=== PATIENT | female | born 1955 | race Caucasian/White ===

== ENCOUNTER 2018-09-13 23:52 | Inpatient (IN) ==
[~2018-09-13 23:52] MED LIST: Sod Chloride 0.9% Inj 1,000 ML IV.CONT SCH
--- NOTE | 2018-09-14 00:06 | ED ---
HPI General Chief complaint: Neuro Symptoms/Deficit Stated complaint: Neuro Time Seen by Provider: 09/13/18 23:55 Source: patient Mode of arrival: ambulatory Limitations: no limitations History of Present Illness HPI narrative: 62yo F with PMH of HTN and TIA was brought down by L&D staff for evaluation of stroke symptoms. Pt came to work and staff noticed she had left facial droop and slurred speech and unsteady in her gait. Said her speech is not normally like this. Left leg is also weaker. Pt said her symptoms started 4:30pm but she did not want to come in. Also complains of some sob. Denies any fever, chest pain, n/v, abdominal pain. Related Data Home Medications Medication Instructions Recorded Confirmed levothyroxine 88 mcg PO DAILY 09/14/18 09/14/18 levothyroxine 100 mcg PO DAILY 09/14/18 09/14/18 lisinopril 20 mg PO BID 09/14/18 09/14/18 nifedipine [Procardia XL] 30 mg PO DAILY 09/18/18 09/18/18 sertraline 100 mg PO BID 09/18/18 09/18/18 Previous Rx's Medication Instructions Recorded gabapentin [Neurontin] 800 mg PO DAILY 10 Days #20 cap 09/18/18 morphine [MS Contin] 15 mg PO Q12H #30 tab 09/18/18 Allergies Allergy/AdvReac Type Severity Reaction Status Date / Time No Known Allergies Allergy Verified 09/13/18 23:54 Review of Systems ROS: all other systems reviewed are negative [facility] Social History Social History Substance History: No History of Abuse Second Hand Smoke Exposure: No Smoking Status: Never smoker How Often Do You Have a Drink Containing Alcohol: Monthly or less Exam Narrative Exam Narrative: GENERAL: 62yo F in mild distress. SKIN: Focused skin assessment warm/dry. HEAD: Atraumatic. Normocephalic. EYES: Pupils equal and round. No scleral icterus. No injection or drainage. ENT: No nasal bleeding or discharge. Mucous membranes pink and moist. NECK: Trachea midline. No JVD. CARDIOVASCULAR: Regular rate and rhythm. No murmur appreciated. RESPIRATORY: No accessory muscle use. Clear to auscultation. Breath sounds equal bilaterally. GASTROINTESTINAL: Abdomen soft, non-tender, nondistended. MUSCULOSKELETAL: No obvious deformities. No clubbing. No cyanosis. No edema. NEUROLOGICAL: Awake and alert. NIH scale 5. Left V1 decreased sensation. Left facial droop. Left leg weakness. PSYCHIATRIC: Appropriate mood and affect; insight and judgment normal. Course Initial Documented Vital Signs Pulse Oximetry 97 09/13/18 23:58 Last Documented Vital Signs Temperature 98.5 F 09/18/18 08:00 Pulse Rate 70 09/18/18 17:00 Respiratory Rate 20 09/18/18 15:23 Blood Pressure 139/85 09/18/18 15:23 Pulse Oximetry 100 09/18/18 15:23 Critical Care Time Critical Care Time: Yes Total Critical Care Time: 50 Attestation: Aggregate critical care time was 50 minutes. Time to perform other separately billable procedures was not included in the critical care time. My time did not include minutes spent treating any other patients simultaneously or on activities that did not directly contribute to the patient's treatment. The services I provided to this patient were to treat and/or prevent clinically significant deterioration that could result in: cardiovascular collapse or . I provided critical care services requiring my management, as noted below: Chart data review, documentation time, medication orders and management, vital sign assessments/reviewing monitor data, ordering and reviewing lab tests, ordering and interpreting/reviewing x-rays and diagnostic studies, care of the patient and discussion of the patient with the admitting physicians. Medical Decision Making MDM Narrative Medical decision making narrative: 62yo F here with slurred speech, left facial droop, left leg weakness that started around 4:30pm today. However, pt did not present to the ED until she came to work this evening at 23:55. Stroke alert called since it is within 24 hours but this is out of TPA window. Discussed with Dr. Thomas. Labs reviewed, no leukocytosis. H/H normal. Troponin negative. BUN/creatinine mildly elevated at 27/1.5. CT brain showed no acute abnormality. CTA head showed no large vessel occlusion. Pt became hypotensive after CT scan and was given IVF NS. Pt found to be somnolent and when asked, said she has chronic back pain and takes morphine and percocet daily. Took her medications prior to coming. Pt given narcan 0.4mg IV and became more arousable , O2 sat 95% on RA. ABG prior to narcan showed respiratory acidosis with pH of 7.28, pCO2 57.5. Pt observed but became more somnolent again so a second 0.4mg narcan ordered. Pt again became more awake. BP still 86/47 after 2 liters of IVF, so ordered a third liter. CXR negative. Lactic acid normal. TSH mildly elevated. CPK normal. Discussed with Dr. Shetty and accepted to his service. Medical Screen Exam Complete: Yes Emergency Medical Condition: Yes Differential Diagnosis Differential Diagnosis: CVA vs. drug use vs. pneumonia vs. electrolyte abnormality Lab Data Result diagrams: 09/17/18 06:02 09/17/18 06:02 Lab Results 09/14/18 09/14/18 09/14/18 Range/Units 00:03 00:03 00:03 WBC 9.1 (4.0-11.0) th/mm3 RBC 4.45 (4.00-5.30) mil/mm3 Hgb 11.9 (11.6-15.3) gm/dL POC Hgb (Calc) 12.6 (11.6-15.3) g/dL Hct 36.5 (35.0-46.0) % POC Hct 37.0 (35-46.0) % MCV 82.0 (80.0-100.0) fL MCH 26.8 L (27.0-34.0) pg MCHC 32.6 (32.0-36.0) % RDW 15.2 (11.6-17.2) % Plt Count 195 (150-450) th/mm3 MPV 8.5 (7.0-11.0) fL Neut % (Auto) 81.4 H (16.0-70.0) % Lymph % (Auto) 7.9 L (9.0-44.0) % Chaves % (Auto) 8.6 H (0.0-8.0) % Eos % (Auto) 1.8 (0.0-4.0) % Baso % (Auto) 0.3 (0.0-2.0) % Neut # (Auto) 7.4 (1.8-7.7) th/mm3 Lymph # (Auto) 0.7 L (1.0-4.8) th/mm3 Chaves # (Auto) 0.8 (0.0-0.9) th/mm3 Eos # (Auto) 0.2 (0.0-0.4) th/mm3 Baso # (Auto) 0.0 (0.0-0.2) th/mm3 WBC Differential . Differential Comment Auto diff final PT 10.4 (9.8-11.6) sec INR 1.0 Ratio APTT 29.2 (23.4-31.7) sec Fibrinogen 433 H (227-377) mg/dL Puncture Site Patient Temperature O2 Saturation (90-100) % ABG pH (7.380-7.420) ABG pCO2 (38-42) mmHg ABG pO2 (61-120) mmHg ABG HCO3 (22-26) mmol/L ABG O2 Content (12.0-20.0) Vol % ABG Base Excess (-2-2) mmol/L ABG Methemoglobin (0-2) % Tyson Test Hemoglobin (12.0-16.0) G/DL Carboxyhemoglobin (0-4) % O2 Delivery Device Liter Flow L/M Vent Setting Inspired O2 % Critical Value POC Sodium 140 (137-144) mmol/L Sodium (136-145) meq/L POC Potassium 5.0 (3.6-5.0) mmol/L Potassium (3.5-5.1) meq/L POC Chloride 103 (102-111) mmol/L Chloride (98-107) meq/L Carbon Dioxide (21.0-32.0) meq/L Anion Gap (5-15) meq/L POC BUN 27 H (5-21) mg/dL BUN (7-18) mg/dL Creatinine (0.50-1.00) mg/dL POC Creatinine 1.5 H (0.6-1.3) mg/dL Estimated GFR (>89) mL/min POC Glucose 96 (68-110) mg/dL Random Glucose (74-106) mg/dL Lactic Acid (0.4-2.0) mmol/L Calcium (8.5-10.1) mg/dL Calcium Adj for Albumin (8.5-10.1) mg/dL Phosphorus (2.5-4.9) mg/dL Magnesium (1.5-2.5) mg/dL Total Bilirubin (0.2-1.0) mg/dL AST (15-37) U/L ALT (10-53) U/L Alkaline Phosphatase (45-117) U/L Total Creatine Kinase 119 (26-192) U/L Troponin I Less than 0.02 L (0.02-0.05) ng/mL Total Protein (6.4-8.2) g/dL Albumin (3.4-5.0) g/dL TSH (0.358-3.740) uIU/mL Urine Color (Yellw/Straw) Urine Clarity (Clear) Urine pH (5.0-8.5) Ur Specific [place] (1.002-1.035) Urine Protein (Neg-Trace) mg/dL Urine Glucose (UA) (Negative) mg/dL Urine Ketones (Negative) mg/dL Urine Occult Blood (Negative) Urine Nitrate (Negative) Urine Bilirubin (Negative) Urine Urobilinogen (Less than 2) mg/dL Ur Leukocyte Esterase (Negative) Urine RBC (0-3) /hpf Urine WBC (0-5) /hpf Urine WBC Clumps (None) Urine Bacteria (None) /hpf Hyaline Casts (0-3) /lpf Urine Mucus (Occasional) /lpf Micro UA Comment Ur Microscopic Review Urine Culture Comments Nasal Screen MRSA (PCR) (Negative) Urine Opiates Screen (Neg) Ur Barbiturates Screen (Neg) Ur Amphetamines Screen (Neg) U Benzodiazepines Scrn (Neg) Urine Cocaine Screen (Neg) U Cannabinoids Screen (Neg) Serum Alcohol (0-5) mg/dL Blood Type Blood Type Recheck Antibody Screen 09/14/18 09/14/18 09/14/18 Range/Units 00:03 01:15 02:32 WBC (4.0-11.0) th/mm3 RBC (4.00-5.30) mil/mm3 Hgb (11.6-15.3) gm/dL POC Hgb (Calc) (11.6-15.3) g/dL Hct (35.0-46.0) % POC Hct (35-46.0) % MCV (80.0-100.0) fL MCH (27.0-34.0) pg MCHC (32.0-36.0) % RDW (11.6-17.2) % Plt Count (150-450) th/mm3 MPV (7.0-11.0) fL Neut % (Auto) (16.0-70.0) % Lymph % (Auto) (9.0-44.0) % Chaves % (Auto) (0.0-8.0) % Eos % (Auto) (0.0-4.0) % Baso % (Auto) (0.0-2.0) % Neut # (Auto) (1.8-7.7) th/mm3 Lymph # (Auto) (1.0-4.8) th/mm3 Chaves # (Auto) (0.0-0.9) th/mm3 Eos # (Auto) (0.0-0.4) th/mm3 Baso # (Auto) (0.0-0.2) th/mm3 WBC Differential Differential Comment PT (9.8-11.6) sec INR Ratio APTT (23.4-31.7) sec Fibrinogen (227-377) mg/dL Puncture Site Left brachial Patient Temperature 98.6 O2 Saturation 89 L* (90-100) % ABG pH 7.29 L* (7.380-7.420) ABG pCO2 58 H* (38-42) mmHg ABG pO2 62 (61-120) mmHg ABG HCO3 27 H (22-26) mmol/L ABG O2 Content 13.4 (12.0-20.0) Vol % ABG Base Excess 0.8 (-2-2) mmol/L ABG Methemoglobin 0.4 (0-2) % Tyson Test Hemoglobin 10.6 L (12.0-16.0) G/DL Carboxyhemoglobin 1.1 (0-4) % O2 Delivery Device Room air Liter Flow L/M Vent Setting Inspired O2 21 % Critical Value Yes POC Sodium (137-144) mmol/L Sodium (136-145) meq/L POC Potassium (3.6-5.0) mmol/L Potassium (3.5-5.1) meq/L POC Chloride (102-111) mmol/L Chloride (98-107) meq/L Carbon Dioxide (21.0-32.0) meq/L Anion Gap (5-15) meq/L POC BUN (5-21) mg/dL BUN (7-18) mg/dL Creatinine (0.50-1.00) mg/dL POC Creatinine (0.6-1.3) mg/dL Estimated GFR (>89) mL/min POC Glucose (68-110) mg/dL Random Glucose (74-106) mg/dL Lactic Acid (0.4-2.0) mmol/L Calcium (8.5-10.1) mg/dL Calcium Adj for Albumin (8.5-10.1) mg/dL Phosphorus (2.5-4.9) mg/dL Magnesium (1.5-2.5) mg/dL Total Bilirubin (0.2-1.0) mg/dL AST (15-37) U/L ALT (10-53) U/L Alkaline Phosphatase (45-117) U/L Total Creatine Kinase (26-192) U/L Troponin I (0.02-0.05) ng/mL Total Protein (6.4-8.2) g/dL Albumin (3.4-5.0) g/dL TSH 5.050 H (0.358-3.740) uIU/mL Urine Color (Yellw/Straw) Urine Clarity (Clear) Urine pH (5.0-8.5) Ur Specific [place] (1.002-1.035) Urine Protein (Neg-Trace) mg/dL Urine Glucose (UA) (Negative) mg/dL Urine Ketones (Negative) mg/dL Urine Occult Blood (Negative) Urine Nitrate (Negative) Urine Bilirubin (Negative) Urine Urobilinogen (Less than 2) mg/dL Ur Leukocyte Esterase (Negative) Urine RBC (0-3) /hpf Urine WBC (0-5) /hpf Urine WBC Clumps (None) Urine Bacteria (None) /hpf Hyaline Casts (0-3) /lpf Urine Mucus (Occasional) /lpf Micro UA Comment Ur Microscopic Review Urine Culture Comments Nasal Screen MRSA (PCR) (Negative) Urine Opiates Screen (Neg) Ur Barbiturates Screen (Neg) Ur Amphetamines Screen (Neg) U Benzodiazepines Scrn (Neg) Urine Cocaine Screen (Neg) U Cannabinoids Screen (Neg) Serum Alcohol Less than 3 (0-5) mg/dL Blood Type A Positive Blood Type Recheck Required Antibody Screen Negative 09/14/18 09/14/18 09/14/18 Range/Units 02:32 03:45 05:41 WBC (4.0-11.0) th/mm3 RBC (4.00-5.30) mil/mm3 Hgb (11.6-15.3) gm/dL POC Hgb (Calc) (11.6-15.3) g/dL Hct (35.0-46.0) % POC Hct (35-46.0) % MCV (80.0-100.0) fL MCH (27.0-34.0) pg MCHC (32.0-36.0) % RDW (11.6-17.2) % Plt Count (150-450) th/mm3 MPV (7.0-11.0) fL Neut % (Auto) (16.0-70.0) % Lymph % (Auto) (9.0-44.0) % Chaves % (Auto) (0.0-8.0) % Eos % (Auto) (0.0-4.0) % Baso % (Auto) (0.0-2.0) % Neut # (Auto) (1.8-7.7) th/mm3 Lymph # (Auto) (1.0-4.8) th/mm3 Chaves # (Auto) (0.0-0.9) th/mm3 Eos # (Auto) (0.0-0.4) th/mm3 Baso # (Auto) (0.0-0.2) th/mm3 WBC Differential Differential Comment PT (9.8-11.6) sec INR Ratio APTT (23.4-31.7) sec Fibrinogen (227-377) mg/dL Puncture Site Patient Temperature O2 Saturation (90-100) % ABG pH (7.380-7.420) ABG pCO2 (38-42) mmHg ABG pO2 (61-120) mmHg ABG HCO3 (22-26) mmol/L ABG O2 Content (12.0-20.0) Vol % ABG Base Excess (-2-2) mmol/L ABG Methemoglobin (0-2) % Tyson Test Hemoglobin (12.0-16.0) G/DL Carboxyhemoglobin (0-4) % O2 Delivery Device Liter Flow L/M Vent Setting Inspired O2 % Critical Value POC Sodium (137-144) mmol/L Sodium (136-145) meq/L POC Potassium (3.6-5.0) mmol/L Potassium (3.5-5.1) meq/L POC Chloride (102-111) mmol/L Chloride (98-107) meq/L Carbon Dioxide (21.0-32.0) meq/L Anion Gap (5-15) meq/L POC BUN (5-21) mg/dL BUN (7-18) mg/dL Creatinine (0.50-1.00) mg/dL POC Creatinine (0.6-1.3) mg/dL Estimated GFR (>89) mL/min POC Glucose (68-110) mg/dL Random Glucose (74-106) mg/dL Lactic Acid 0.9 (0.4-2.0) mmol/L Calcium (8.5-10.1) mg/dL Calcium Adj for Albumin (8.5-10.1) mg/dL Phosphorus (2.5-4.9) mg/dL Magnesium (1.5-2.5) mg/dL Total Bilirubin (0.2-1.0) mg/dL AST (15-37) U/L ALT (10-53) U/L Alkaline Phosphatase (45-117) U/L Total Creatine Kinase (26-192) U/L Troponin I (0.02-0.05) ng/mL Total Protein (6.4-8.2) g/dL Albumin (3.4-5.0) g/dL TSH (0.358-3.740) uIU/mL Urine Color (Yellw/Straw) Urine Clarity (Clear) Urine pH (5.0-8.5) Ur Specific [place] (1.002-1.035) Urine Protein (Neg-Trace) mg/dL Urine Glucose (UA) (Negative) mg/dL Urine Ketones (Negative) mg/dL Urine Occult Blood (Negative) Urine Nitrate (Negative) Urine Bilirubin (Negative) Urine Urobilinogen (Less than 2) mg/dL Ur Leukocyte Esterase (Negative) Urine RBC (0-3) /hpf Urine WBC (0-5) /hpf Urine WBC Clumps (None) Urine Bacteria (None) /hpf Hyaline Casts (0-3) /lpf Urine Mucus (Occasional) /lpf Micro UA Comment Ur Microscopic Review Urine Culture Comments Nasal Screen MRSA (PCR) Not detected (Negative) Urine Opiates Screen Pos H (Neg) Ur Barbiturates Screen Neg (Neg) Ur Amphetamines Screen Neg (Neg) U Benzodiazepines Scrn Neg (Neg) Urine Cocaine Screen Neg (Neg) U Cannabinoids Screen Neg (Neg) Serum Alcohol (0-5) mg/dL Blood Type Blood Type Recheck Antibody Screen 09/14/18 09/14/18 09/14/18 Range/Units 05:41 06:33 07:55 WBC 5.8 (4.0-11.0) th/mm3 RBC 3.44 L (4.00-5.30) mil/mm3 Hgb 9.1 L D (11.6-15.3) gm/dL POC Hgb (Calc) (11.6-15.3) g/dL Hct 29.0 L (35.0-46.0) % POC Hct (35-46.0) % MCV 84.3 (80.0-100.0) fL MCH 26.6 L (27.0-34.0) pg MCHC 31.5 L (32.0-36.0) % RDW 15.6 (11.6-17.2) % Plt Count 139 L (150-450) th/mm3 MPV 8.7 (7.0-11.0) fL Neut % (Auto) 79.4 H (16.0-70.0) % Lymph % (Auto) 11.8 (9.0-44.0) % Chaves % (Auto) 6.8 (0.0-8.0) % Eos % (Auto) 1.7 (0.0-4.0) % Baso % (Auto) 0.3 (0.0-2.0) % Neut # (Auto) 4.6 (1.8-7.7) th/mm3 Lymph # (Auto) 0.7 L (1.0-4.8) th/mm3 Chaves # (Auto) 0.4 (0.0-0.9) th/mm3 Eos # (Auto) 0.1 (0.0-0.4) th/mm3 Baso # (Auto) 0.0 (0.0-0.2) th/mm3 WBC Differential . Differential Comment Auto diff final PT (9.8-11.6) sec INR Ratio APTT (23.4-31.7) sec Fibrinogen (227-377) mg/dL Puncture Site Patient Temperature O2 Saturation (90-100) % ABG pH (7.380-7.420) ABG pCO2 (38-42) mmHg ABG pO2 (61-120) mmHg ABG HCO3 (22-26) mmol/L ABG O2 Content (12.0-20.0) Vol % ABG Base Excess (-2-2) mmol/L ABG Methemoglobin (0-2) % Tyson Test Hemoglobin (12.0-16.0) G/DL Carboxyhemoglobin (0-4) % O2 Delivery Device Liter Flow L/M Vent Setting Inspired O2 % Critical Value POC Sodium (137-144) mmol/L Sodium (136-145) meq/L POC Potassium (3.6-5.0) mmol/L Potassium (3.5-5.1) meq/L POC Chloride (102-111) mmol/L Chloride (98-107) meq/L Carbon Dioxide (21.0-32.0) meq/L Anion Gap (5-15) meq/L POC BUN (5-21) mg/dL BUN (7-18) mg/dL Creatinine (0.50-1.00) mg/dL POC Creatinine (0.6-1.3) mg/dL Estimated GFR (>89) mL/min POC Glucose (68-110) mg/dL Random Glucose (74-106) mg/dL Lactic Acid (0.4-2.0) mmol/L Calcium (8.5-10.1) mg/dL Calcium Adj for Albumin (8.5-10.1) mg/dL Phosphorus (2.5-4.9) mg/dL Magnesium (1.5-2.5) mg/dL Total Bilirubin (0.2-1.0) mg/dL AST (15-37) U/L ALT (10-53) U/L Alkaline Phosphatase (45-117) U/L Total Creatine Kinase (26-192) U/L Troponin I Less than 0.02 L (0.02-0.05) ng/mL Total Protein (6.4-8.2) g/dL Albumin (3.4-5.0) g/dL TSH (0.358-3.740) uIU/mL Urine Color Yellow (Yellw/Straw) Urine Clarity Hazy H (Clear) Urine pH 5.0 (5.0-8.5) Ur Specific [place] 1.030 (1.002-1.035) Urine Protein 30 H (Neg-Trace) mg/dL Urine Glucose (UA) Negative (Negative) mg/dL Urine Ketones Negative (Negative) mg/dL Urine Occult Blood Small H (Negative) Urine Nitrate Positive H (Negative) Urine Bilirubin Negative (Negative) Urine Urobilinogen Less than 2 (Less than 2) mg/dL Ur Leukocyte Esterase Moderate H (Negative) Urine RBC 10 H (0-3) /hpf Urine WBC 75 H (0-5) /hpf Urine WBC Clumps Few H (None) Urine Bacteria Many H (None) /hpf Hyaline Casts 3 (0-3) /lpf Urine Mucus Few H (Occasional) /lpf Micro UA Comment Cath-culture ind Ur Microscopic Review Not Reportable Urine Culture Comments Cath-cult indicated Nasal Screen MRSA (PCR) (Negative) Urine Opiates Screen (Neg) Ur Barbiturates Screen (Neg) Ur Amphetamines Screen (Neg) U Benzodiazepines Scrn (Neg) Urine Cocaine Screen (Neg) U Cannabinoids Screen (Neg) Serum Alcohol (0-5) mg/dL Blood Type Blood Type Recheck Antibody Screen 09/14/18 09/14/18 09/14/18 Range/Units 07:55 07:55 09:20 WBC (4.0-11.0) th/mm3 RBC (4.00-5.30) mil/mm3 Hgb (11.6-15.3) gm/dL POC Hgb (Calc) (11.6-15.3) g/dL Hct (35.0-46.0) % POC Hct (35-46.0) % MCV (80.0-100.0) fL MCH (27.0-34.0) pg MCHC (32.0-36.0) % RDW (11.6-17.2) % Plt Count (150-450) th/mm3 MPV (7.0-11.0) fL Neut % (Auto) (16.0-70.0) % Lymph % (Auto) (9.0-44.0) % Chaves % (Auto) (0.0-8.0) % Eos % (Auto) (0.0-4.0) % Baso % (Auto) (0.0-2.0) % Neut # (Auto) (1.8-7.7) th/mm3 Lymph # (Auto) (1.0-4.8) th/mm3 Chaves # (Auto) (0.0-0.9) th/mm3 Eos # (Auto) (0.0-0.4) th/mm3 Baso # (Auto) (0.0-0.2) th/mm3 WBC Differential Differential Comment PT (9.8-11.6) sec INR Ratio APTT (23.4-31.7) sec Fibrinogen (227-377) mg/dL Puncture Site Left radial Patient Temperature 98.6 O2 Saturation 94 (90-100) % ABG pH 7.24 L* (7.380-7.420) ABG pCO2 56 H* (38-42) mmHg ABG pO2 90 (61-120) mmHg ABG HCO3 23 (22-26) mmol/L ABG O2 Content 12.4 (12.0-20.0) Vol % ABG Base Excess -3.2 L (-2-2) mmol/L ABG Methemoglobin 1.6 (0-2) % Tyson Test Present Hemoglobin 9.3 L (12.0-16.0) G/DL Carboxyhemoglobin 0.9 (0-4) % O2 Delivery Device Nasal cannula Liter Flow 2.00 L/M Vent Setting Inspired O2 % Critical Value Yes POC Sodium (137-144) mmol/L Sodium 143 (136-145) meq/L POC Potassium (3.6-5.0) mmol/L Potassium 4.2 (3.5-5.1) meq/L POC Chloride (102-111) mmol/L Chloride 113 H (98-107) meq/L Carbon Dioxide 28.2 (21.0-32.0) meq/L Anion Gap 2 L (5-15) meq/L POC BUN (5-21) mg/dL BUN 18 (7-18) mg/dL Creatinine 0.84 (0.50-1.00) mg/dL POC Creatinine (0.6-1.3) mg/dL Estimated GFR 68 L (>89) mL/min POC Glucose (68-110) mg/dL Random Glucose 88 (74-106) mg/dL Lactic Acid 0.4 (0.4-2.0) mmol/L Calcium 7.3 L* (8.5-10.1) mg/dL Calcium Adj for Albumin 7.9 L (8.5-10.1) mg/dL Phosphorus (2.5-4.9) mg/dL Magnesium (1.5-2.5) mg/dL Total Bilirubin 0.3 (0.2-1.0) mg/dL AST 11 L (15-37) U/L ALT 14 (10-53) U/L Alkaline Phosphatase 88 (45-117) U/L Total Creatine Kinase (26-192) U/L Troponin I (0.02-0.05) ng/mL Total Protein 5.9 L (6.4-8.2) g/dL Albumin 3.2 L (3.4-5.0) g/dL TSH (0.358-3.740) uIU/mL Urine Color (Yellw/Straw) Urine Clarity (Clear) Urine pH (5.0-8.5) Ur Specific [place] (1.002-1.035) Urine Protein (Neg-Trace) mg/dL Urine Glucose (UA) (Negative) mg/dL Urine Ketones (Negative) mg/dL Urine Occult Blood (Negative) Urine Nitrate (Negative) Urine Bilirubin (Negative) Urine Urobilinogen (Less than 2) mg/dL Ur Leukocyte Esterase (Negative) Urine RBC (0-3) /hpf Urine WBC (0-5) /hpf Urine WBC Clumps (None) Urine Bacteria (None) /hpf Hyaline Casts (0-3) /lpf Urine Mucus (Occasional) /lpf Micro UA Comment Ur Microscopic Review Urine Culture Comments Nasal Screen MRSA (PCR) (Negative) Urine Opiates Screen (Neg) Ur Barbiturates Screen (Neg) Ur Amphetamines Screen (Neg) U Benzodiazepines Scrn (Neg) Urine Cocaine Screen (Neg) U Cannabinoids Screen (Neg) Serum Alcohol (0-5) mg/dL Blood Type Blood Type Recheck Antibody Screen 09/14/18 09/14/18 09/14/18 Range/Units 13:37 15:25 22:18 WBC (4.0-11.0) th/mm3 RBC (4.00-5.30) mil/mm3 Hgb (11.6-15.3) gm/dL POC Hgb (Calc) (11.6-15.3) g/dL Hct (35.0-46.0) % POC Hct (35-46.0) % MCV (80.0-100.0) fL MCH (27.0-34.0) pg MCHC (32.0-36.0) % RDW (11.6-17.2) % Plt Count (150-450) th/mm3 MPV (7.0-11.0) fL Neut % (Auto) (16.0-70.0) % Lymph % (Auto) (9.0-44.0) % Chaves % (Auto) (0.0-8.0) % Eos % (Auto) (0.0-4.0) % Baso % (Auto) (0.0-2.0) % Neut # (Auto) (1.8-7.7) th/mm3 Lymph # (Auto) (1.0-4.8) th/mm3 Chaves # (Auto) (0.0-0.9) th/mm3 Eos # (Auto) (0.0-0.4) th/mm3 Baso # (Auto) (0.0-0.2) th/mm3 WBC Differential Differential Comment PT (9.8-11.6) sec INR Ratio APTT (23.4-31.7) sec Fibrinogen (227-377) mg/dL Puncture Site Right radial Right radial Patient Temperature 98.6 98.6 O2 Saturation 96 95 (90-100) % ABG pH 7.27 L* 7.29 L* (7.380-7.420) ABG pCO2 50 H 50 H (38-42) mmHg ABG pO2 100 96 (61-120) mmHg ABG HCO3 22 23 (22-26) mmol/L ABG O2 Content 12.3 15.4 (12.0-20.0) Vol % ABG Base Excess -3.8 L -2.5 L (-2-2) mmol/L ABG Methemoglobin 0.6 1.5 (0-2) % Tyson Test Present Present Hemoglobin 9.0 L 11.4 L (12.0-16.0) G/DL Carboxyhemoglobin 1.3 1.1 (0-4) % O2 Delivery Device Nasal cannula Bipap Liter Flow 2.00 L/M Vent Setting [id number] Inspired O2 25 % Critical Value Yes Yes POC Sodium (137-144) mmol/L Sodium (136-145) meq/L POC Potassium (3.6-5.0) mmol/L Potassium (3.5-5.1) meq/L POC Chloride (102-111) mmol/L Chloride (98-107) meq/L Carbon Dioxide (21.0-32.0) meq/L Anion Gap (5-15) meq/L POC BUN (5-21) mg/dL BUN (7-18) mg/dL Creatinine (0.50-1.00) mg/dL POC Creatinine (0.6-1.3) mg/dL Estimated GFR (>89) mL/min POC Glucose (68-110) mg/dL Random Glucose (74-106) mg/dL Lactic Acid (0.4-2.0) mmol/L Calcium (8.5-10.1) mg/dL Calcium Adj for Albumin (8.5-10.1) mg/dL Phosphorus (2.5-4.9) mg/dL Magnesium (1.5-2.5) mg/dL Total Bilirubin (0.2-1.0) mg/dL AST (15-37) U/L ALT (10-53) U/L Alkaline Phosphatase (45-117) U/L Total Creatine Kinase (26-192) U/L Troponin I Less than 0.02 L (0.02-0.05) ng/mL Total Protein (6.4-8.2) g/dL Albumin (3.4-5.0) g/dL TSH (0.358-3.740) uIU/mL Urine Color (Yellw/Straw) Urine Clarity (Clear) Urine pH (5.0-8.5) Ur Specific [place] (1.002-1.035) Urine Protein (Neg-Trace) mg/dL Urine Glucose (UA) (Negative) mg/dL Urine Ketones (Negative) mg/dL Urine Occult Blood (Negative) Urine Nitrate (Negative) Urine Bilirubin (Negative) Urine Urobilinogen (Less than 2) mg/dL Ur Leukocyte Esterase (Negative) Urine RBC (0-3) /hpf Urine WBC (0-5) /hpf Urine WBC Clumps (None) Urine Bacteria (None) /hpf Hyaline Casts (0-3) /lpf Urine Mucus (Occasional) /lpf Micro UA Comment Ur Microscopic Review Urine Culture Comments Nasal Screen MRSA (PCR) (Negative) Urine Opiates Screen (Neg) Ur Barbiturates Screen (Neg) Ur Amphetamines Screen (Neg) U Benzodiazepines Scrn (Neg) Urine Cocaine Screen (Neg) U Cannabinoids Screen (Neg) Serum Alcohol (0-5) mg/dL Blood Type Blood Type Recheck Antibody Screen 09/15/18 09/15/18 09/15/18 Range/Units 03:30 03:30 03:30 WBC 3.3 L (4.0-11.0) th/mm3 RBC 3.42 L (4.00-5.30) mil/mm3 Hgb 9.3 L (11.6-15.3) gm/dL POC Hgb (Calc) (11.6-15.3) g/dL Hct 28.4 L (35.0-46.0) % POC Hct (35-46.0) % MCV 83.3 (80.0-100.0) fL MCH 27.2 (27.0-34.0) pg MCHC 32.7 (32.0-36.0) % RDW 15.5 (11.6-17.2) % Plt Count 109 L (150-450) th/mm3 MPV 9.0 (7.0-11.0) fL Neut % (Auto) 71.7 H (16.0-70.0) % Lymph % (Auto) 15.2 (9.0-44.0) % Chaves % (Auto) 8.5 H (0.0-8.0) % Eos % (Auto) 4.1 H (0.0-4.0) % Baso % (Auto) 0.5 (0.0-2.0) % Neut # (Auto) 2.4 (1.8-7.7) th/mm3 Lymph # (Auto) 0.5 L (1.0-4.8) th/mm3 Chaves # (Auto) 0.3 (0.0-0.9) th/mm3 Eos # (Auto) 0.1 (0.0-0.4) th/mm3 Baso # (Auto) 0.0 (0.0-0.2) th/mm3 WBC Differential . Differential Comment Auto diff final PT 10.8 (9.8-11.6) sec INR 1.1 Ratio APTT 30.9 (23.4-31.7) sec Fibrinogen (227-377) mg/dL Puncture Site Patient Temperature O2 Saturation (90-100) % ABG pH (7.380-7.420) ABG pCO2 (38-42) mmHg ABG pO2 (61-120) mmHg ABG HCO3 (22-26) mmol/L ABG O2 Content (12.0-20.0) Vol % ABG Base Excess (-2-2) mmol/L ABG Methemoglobin (0-2) % Tyson Test Hemoglobin (12.0-16.0) G/DL Carboxyhemoglobin (0-4) % O2 Delivery Device Liter Flow L/M Vent Setting Inspired O2 % Critical Value POC Sodium (137-144) mmol/L Sodium 143 (136-145) meq/L POC Potassium (3.6-5.0) mmol/L Potassium 4.2 (3.5-5.1) meq/L POC Chloride (102-111) mmol/L Chloride 113 H (98-107) meq/L Carbon Dioxide 24.5 (21.0-32.0) meq/L Anion Gap 6 (5-15) meq/L POC BUN (5-21) mg/dL BUN 13 (7-18) mg/dL Creatinine 0.56 (0.50-1.00) mg/dL POC Creatinine (0.6-1.3) mg/dL Estimated GFR Greater than 89 (>89) mL/min POC Glucose (68-110) mg/dL Random Glucose 73 L (74-106) mg/dL Lactic Acid (0.4-2.0) mmol/L Calcium 8.0 L (8.5-10.1) mg/dL Calcium Adj for Albumin (8.5-10.1) mg/dL Phosphorus 3.2 (2.5-4.9) mg/dL Magnesium 2.0 (1.5-2.5) mg/dL Total Bilirubin 0.4 (0.2-1.0) mg/dL AST 13 L (15-37) U/L ALT 13 (10-53) U/L Alkaline Phosphatase 85 (45-117) U/L Total Creatine Kinase (26-192) U/L Troponin I (0.02-0.05) ng/mL Total Protein 6.0 L (6.4-8.2) g/dL Albumin 3.0 L (3.4-5.0) g/dL TSH (0.358-3.740) uIU/mL Urine Color (Yellw/Straw) Urine Clarity (Clear) Urine pH (5.0-8.5) Ur Specific [place] (1.002-1.035) Urine Protein (Neg-Trace) mg/dL Urine Glucose (UA) (Negative) mg/dL Urine Ketones (Negative) mg/dL Urine Occult Blood (Negative) Urine Nitrate (Negative) Urine Bilirubin (Negative) Urine Urobilinogen (Less than 2) mg/dL Ur Leukocyte Esterase (Negative) Urine RBC (0-3) /hpf Urine WBC (0-5) /hpf Urine WBC Clumps (None) Urine Bacteria (None) /hpf Hyaline Casts (0-3) /lpf Urine Mucus (Occasional) /lpf Micro UA Comment Ur Microscopic Review Urine Culture Comments Nasal Screen MRSA (PCR) (Negative) Urine Opiates Screen (Neg) Ur Barbiturates Screen (Neg) Ur Amphetamines Screen (Neg) U Benzodiazepines Scrn (Neg) Urine Cocaine Screen (Neg) U Cannabinoids Screen (Neg) Serum Alcohol (0-5) mg/dL Blood Type Blood Type Recheck Antibody Screen 09/16/18 09/16/18 09/17/18 Range/Units 07:34 07:34 06:02 WBC 3.4 L 3.1 L (4.0-11.0) th/mm3 RBC 3.62 L 3.82 L (4.00-5.30) mil/mm3 Hgb 9.7 L 10.2 L (11.6-15.3) gm/dL POC Hgb (Calc) (11.6-15.3) g/dL Hct 29.7 L 31.0 L (35.0-46.0) % POC Hct (35-46.0) % MCV 82.0 81.3 (80.0-100.0) fL MCH 26.9 L 26.8 L (27.0-34.0) pg MCHC 32.8 33.0 (32.0-36.0) % RDW 15.0 14.7 (11.6-17.2) % Plt Count 135 L 143 L (150-450) th/mm3 MPV 9.0 8.5 (7.0-11.0) fL Neut % (Auto) 75.6 H 71.9 H (16.0-70.0) % Lymph % (Auto) 12.8 13.2 (9.0-44.0) % Chaves % (Auto) 8.5 H 11.3 H (0.0-8.0) % Eos % (Auto) 2.5 3.1 (0.0-4.0) % Baso % (Auto) 0.6 0.5 (0.0-2.0) % Neut # (Auto) 2.5 2.2 (1.8-7.7) th/mm3 Lymph # (Auto) 0.4 L 0.4 L (1.0-4.8) th/mm3 Chaves # (Auto) 0.3 0.3 (0.0-0.9) th/mm3 Eos # (Auto) 0.1 0.1 (0.0-0.4) th/mm3 Baso # (Auto) 0.0 0.0 (0.0-0.2) th/mm3 WBC Differential . . Differential Comment Auto diff final Auto diff final PT (9.8-11.6) sec INR Ratio APTT (23.4-31.7) sec Fibrinogen (227-377) mg/dL Puncture Site Patient Temperature O2 Saturation (90-100) % ABG pH (7.380-7.420) ABG pCO2 (38-42) mmHg ABG pO2 (61-120) mmHg ABG HCO3 (22-26) mmol/L ABG O2 Content (12.0-20.0) Vol % ABG Base Excess (-2-2) mmol/L ABG Methemoglobin (0-2) % Tyson Test Hemoglobin (12.0-16.0) G/DL Carboxyhemoglobin (0-4) % O2 Delivery Device Liter Flow L/M Vent Setting Inspired O2 % Critical Value POC Sodium (137-144) mmol/L Sodium 141 (136-145) meq/L POC Potassium (3.6-5.0) mmol/L Potassium 3.9 (3.5-5.1) meq/L POC Chloride (102-111) mmol/L Chloride 109 H (98-107) meq/L Carbon Dioxide 21.1 (21.0-32.0) meq/L Anion Gap 11 (5-15) meq/L POC BUN (5-21) mg/dL BUN 10 (7-18) mg/dL Creatinine 0.49 L (0.50-1.00) mg/dL POC Creatinine (0.6-1.3) mg/dL Estimated GFR Greater than 89 (>89) mL/min POC Glucose (68-110) mg/dL Random Glucose 71 L (74-106) mg/dL Lactic Acid (0.4-2.0) mmol/L Calcium 8.4 L (8.5-10.1) mg/dL Calcium Adj for Albumin (8.5-10.1) mg/dL Phosphorus (2.5-4.9) mg/dL Magnesium (1.5-2.5) mg/dL Total Bilirubin (0.2-1.0) mg/dL AST (15-37) U/L ALT (10-53) U/L Alkaline Phosphatase (45-117) U/L Total Creatine Kinase (26-192) U/L Troponin I (0.02-0.05) ng/mL Total Protein (6.4-8.2) g/dL Albumin (3.4-5.0) g/dL TSH (0.358-3.740) uIU/mL Urine Color (Yellw/Straw) Urine Clarity (Clear) Urine pH (5.0-8.5) Ur Specific [place] (1.002-1.035) Urine Protein (Neg-Trace) mg/dL Urine Glucose (UA) (Negative) mg/dL Urine Ketones (Negative) mg/dL Urine Occult Blood (Negative) Urine Nitrate (Negative) Urine Bilirubin (Negative) Urine Urobilinogen (Less than 2) mg/dL Ur Leukocyte Esterase (Negative) Urine RBC (0-3) /hpf Urine WBC (0-5) /hpf Urine WBC Clumps (None) Urine Bacteria (None) /hpf Hyaline Casts (0-3) /lpf Urine Mucus (Occasional) /lpf Micro UA Comment Ur Microscopic Review Urine Culture Comments Nasal Screen MRSA (PCR) (Negative) Urine Opiates Screen (Neg) Ur Barbiturates Screen (Neg) Ur Amphetamines Screen (Neg) U Benzodiazepines Scrn (Neg) Urine Cocaine Screen (Neg) U Cannabinoids Screen (Neg) Serum Alcohol (0-5) mg/dL Blood Type Blood Type Recheck Antibody Screen 01/14/19 Range/Units 06:02 WBC (4.0-11.0) th/mm3 RBC (4.00-5.30) mil/mm3 Hgb (11.6-15.3) gm/dL POC Hgb (Calc) (11.6-15.3) g/dL Hct (35.0-46.0) % POC Hct (35-46.0) % MCV (80.0-100.0) fL MCH (27.0-34.0) pg MCHC (32.0-36.0) % RDW (11.6-17.2) % Plt Count (150-450) th/mm3 MPV (7.0-11.0) fL Neut % (Auto) (16.0-70.0) % Lymph % (Auto) (9.0-44.0) % Chaves % (Auto) (0.0-8.0) % Eos % (Auto) (0.0-4.0) % Baso % (Auto) (0.0-2.0) % Neut # (Auto) (1.8-7.7) th/mm3 Lymph # (Auto) (1.0-4.8) th/mm3 Chaves # (Auto) (0.0-0.9) th/mm3 Eos # (Auto) (0.0-0.4) th/mm3 Baso # (Auto) (0.0-0.2) th/mm3 WBC Differential Differential Comment PT (9.8-11.6) sec INR Ratio APTT (23.4-31.7) sec Fibrinogen (227-377) mg/dL Puncture Site Patient Temperature O2 Saturation (90-100) % ABG pH (7.380-7.420) ABG pCO2 (38-42) mmHg ABG pO2 (61-120) mmHg ABG HCO3 (22-26) mmol/L ABG O2 Content (12.0-20.0) Vol % ABG Base Excess (-2-2) mmol/L ABG Methemoglobin (0-2) % Tyson Test Hemoglobin (12.0-16.0) G/DL Carboxyhemoglobin (0-4) % O2 Delivery Device Liter Flow L/M Vent Setting Inspired O2 % Critical Value POC Sodium (137-144) mmol/L Sodium 142 (136-145) meq/L POC Potassium (3.6-5.0) mmol/L Potassium 3.5 (3.5-5.1) meq/L POC Chloride (102-111) mmol/L Chloride 107 (98-107) meq/L Carbon Dioxide 24.4 (21.0-32.0) meq/L Anion Gap 11 (5-15) meq/L POC BUN (5-21) mg/dL BUN 6 L (7-18) mg/dL Creatinine 0.44 L (0.50-1.00) mg/dL POC Creatinine (0.6-1.3) mg/dL Estimated GFR Greater than 89 (>89) mL/min POC Glucose (68-110) mg/dL Random Glucose 71 L (74-106) mg/dL Lactic Acid (0.4-2.0) mmol/L Calcium 8.3 L (8.5-10.1) mg/dL Calcium Adj for Albumin (8.5-10.1) mg/dL Phosphorus (2.5-4.9) mg/dL Magnesium (1.5-2.5) mg/dL Total Bilirubin (0.2-1.0) mg/dL AST (15-37) U/L ALT (10-53) U/L Alkaline Phosphatase (45-117) U/L Total Creatine Kinase (26-192) U/L Troponin I (0.02-0.05) ng/mL Total Protein (6.4-8.2) g/dL Albumin (3.4-5.0) g/dL TSH (0.358-3.740) uIU/mL Urine Color (Yellw/Straw) Urine Clarity (Clear) Urine pH (5.0-8.5) Ur Specific [place] (1.002-1.035) Urine Protein (Neg-Trace) mg/dL Urine Glucose (UA) (Negative) mg/dL Urine Ketones (Negative) mg/dL Urine Occult Blood (Negative) Urine Nitrate (Negative) Urine Bilirubin (Negative) Urine Urobilinogen (Less than 2) mg/dL Ur Leukocyte Esterase (Negative) Urine RBC (0-3) /hpf Urine WBC (0-5) /hpf Urine WBC Clumps (None) Urine Bacteria (None) /hpf Hyaline Casts (0-3) /lpf Urine Mucus (Occasional) /lpf Micro UA Comment Ur Microscopic Review Urine Culture Comments Nasal Screen MRSA (PCR) (Negative) Urine Opiates Screen (Neg) Ur Barbiturates Screen (Neg) Ur Amphetamines Screen (Neg) U Benzodiazepines Scrn (Neg) Urine Cocaine Screen (Neg) U Cannabinoids Screen (Neg) Serum Alcohol (0-5) mg/dL Blood Type Blood Type Recheck Antibody Screen Imaging Data Radiologist's impression: Head CT 09/14/18 00:00 CONCLUSION: 1. Stable noncontrast head CT. No acute intracranial abnormality is identified. 2. Chronic findings include generalized atrophy and chronic periventricular white matter change. This report was telephoned to Dr. Jimenes on 09/14/2017 at 12:19 AM. Head CTA 09/14/18 00:00 CONCLUSION: Atherosclerotic disease within the distal vertebral arteries bilaterally and within the intracranial aspect of the internal carotid arteries. No large vessel occlusion is present. The above findings were telephoned to Dr. Thomas 09/14/2018 at 12:25 AM. Neck CTA 09/14/18 00:00 CONCLUSION: 1. Atherosclerotic disease within the carotid bulbs bilaterally. However, there is less than 50% stenosis. 2. Severe calcified plaque in the proximal right vertebral artery near its origin. Chest X-Ray 09/14/18 00:01 CONCLUSION: Stable chest x-ray. No acute cardiopulmonary abnormality is identified. Abdomen X-Ray 09/16/18 00:00 CONCLUSION: 1. Stool throughout the colon possibly representing some degree of constipation. 2. Otherwise negative. Nonobstructive bowel gas pattern without pneumoperitoneum Liver Ultrasound 09/16/18 00:00 CONCLUSION: 1. Nonshadowing 6 mm hypoechogenic focus near the neck of the gallbladder could represent polyp versus stone. Common bile duct dimension cannot be reported due to nonvisualization 2. Right pleural effusion. Abdomen X-Ray 09/17/18 00:00 CONCLUSION: Unremarkable bowel gas pattern. Discharge Plan Discharge Disposition Patient Disposition: ED Admit(ED Internal Use Only) Discharge Condition Condition: Stable Discharge Order Discharge Orders: Discharge Order (Routine); Ordered 09/18/18 Ordered By: Lidia Bolanos ED Use Only Admit Order (Routine); Ordered 09/14/18 Ordered By: Lena Jimenes Discharge Details Anticipated Discharge Date: 09/18/18 Discharge Comment: f/u with PCP, Dr. Saúl Li, in 1 week f/u with Pain mgmt, Dr. Bailey, in 2 weeks Diagnosis: Hypotension Physicians Team ED Provider: Lena Jimenes Primary Care Provider: UNKNOWN, Attending Provider: Sammy Shetty Other Providers: Ari Fletcher Status ED Status: Left Department Discharge Information Discharge Date/Time: 09/14/18 04:33
[2018-09-14 00:18] LABS: Baso % (Auto) 0.3 % (0.0-2.0); Eos # (Auto) 0.2 th/mm3 (0.0-0.4); Eos % (Auto) 1.8 % (0.0-4.0); Hematocrit 36.5 % (35.0-46.0); Hemoglobin 11.9 gm/dL (11.6-15.3); Lymph # (Auto) 0.7 th/mm3 (1.0-4.8); Lymph % (Auto) 7.9 % (9.0-44.0); Mean Corpuscular HGB Conc 32.6 % (32.0-36.0); Mean Corpuscular Hemoglobin 26.8 pg (27.0-34.0); Mean Platelet Volume 8.5 fL (7.0-11.0); Mono # (Auto) 0.8 th/mm3 (0.0-0.9); Mono % (Auto) 8.6 % (0.0-8.0); Neut # (Auto) 7.4 th/mm3 (1.8-7.7); Neut % (Auto) 81.4 % (16.0-70.0); Platelet Count 195 th/mm3 (150-450); Red Blood Count 4.45 mil/mm3 (4.00-5.30); Red Cell Distribution Width 15.2 % (11.6-17.2); White Blood Count 9.1 th/mm3 (4.0-11.0)
--- NOTE | 2018-09-14 00:21 | CT ---
EXAM DATE: 09/14/2018 12:14 AM EST AGE/SEX: 62 years / Female INDICATIONS: Stroke alert, slurred speech, left sided facial droop and left sided weakness. CLINICAL DATA: This is the patient's initial encounter. Patient reports that signs and symptoms have been present for 1 day and indicates a pain score of 0/10. MEDICAL/SURGICAL HISTORY: Cerebrovascular disease. Hypertension. None. RADIATION DOSE: 52.83 CTDI (mGy) COMPARISON: [facility] – [place], [place] HEAD W/O CONTRAST, 09/01/2018. . TECHNIQUE: CT of the head without contrast. Using automated exposure control and adjustment of the mA and/or kV according to patient size, radiation dose was kept as low as reasonably achievable to ob tain optimal diagnostic quality images. DICOM format image data is available electronically for revi ew and comparison. FINDINGS: Cerebrum: There is mild generalized atrophy and ventricles are normal given the degree of atrophy. M oderate stable periventricular white matter change is present. No midline shift, mass lesion, hemorr francisco j or acute infarction. No extraaxial fluid collections are seen. Posterior Fossa: The cerebellum and brainstem demonstrate no acute abnormality. The 4th ventricle is midline. The cerebellopontine angle is within normal limits. Extracranial: There is mucoperiosteal thickening within the left maxillary antrum. Skull: The calvaria is intact. No skull fracture. CONCLUSION: 1. Stable noncontrast head CT. No acute intracranial abnormality is identified. 2. Chronic findings include generalized atrophy and chronic periventricular white matter change. This report was telephoned to Dr. Jimenes on 09/14/2017 at 12:19 AM. Electronically signed by: Davian Gordon MD Board Certified Radiologist 09/14/2018 12:20 AM EST
[2018-09-14 00:26] LABS: Activated Partial Thrombo Time 29.2 sec (23.4-31.7); Prothrombin Time 10.4 sec (9.8-11.6)
--- NOTE | 2018-09-14 00:27 | CT ---
EXAM DATE: 09/14/2018 12:19 AM EST AGE/SEX: 62 years / Female INDICATIONS: Stroke alert, slurred speech, left sided facial droop and left sided weakness. CLINICAL DATA: This is the patient's initial encounter. Patient reports that signs and symptoms have been present for 1 day and indicates a pain score of 0/10. MEDICAL/SURGICAL HISTORY: Cerebrovascular disease. Hypertension. None. RADIATION DOSE: 9.97 CTDI (mGy) ; Combined studies COMPARISON: No prior exams available for comparison. TECHNIQUE: Volumetric scanning was performed using a multi-row detector CT scanner during bolus infu shira of 100 ml Visipaque 320 (iodixanol) nonionic water-soluble contrast as a cumulative dose for mu ltiple exams. The data was post processed with a variety of visualization algorithms including full volume maximum intensity projection, multi-planar sliding thin slab reformation, curved planar refor mation, and surface rendering techniques. Using automated exposure control and adjustment of the mA and/or kV according to patient size, radiation dose was kept as low as reasonably achievable to obtai n optimal diagnostic quality images. DICOM format image data is available electronically for review and comparison. FINDINGS: Anterior circulation: There is moderate calcified plaque in the intracranial aspect of the internal c arotid arteries bilaterally but no high-grade stenosis is visualized. A1 segments are symmetric bilat erally. The anterior cerebral arteries and middle cerebral arteries are within normal limits without high-grade stenosis, vessel truncation, or aneurysm. Posterior circulation: The vertebral arteries are codominant. There is severe focal calcified plaque in the distal right vertebral artery and mild calcified plaque in the distal left vertebral artery. B asilar artery and posterior cerebral arteries demonstrate no significant stenosis and no aneurysm is seen. CONCLUSION: Atherosclerotic disease within the distal vertebral arteries bilaterally and within the intracranial aspect of the internal carotid arteries. No large vessel occlusion is present. The above findings were telephoned to Dr. Thomas 09/14/2018 at 12:25 AM. Electronically signed by: Davian Gordon MD Board Certified Radiologist 09/14/2018 12:26 AM EST
[2018-09-14] MEDS ORDERED: Sod Chloride 0.9% Inj 1,000 ML IV.SIG SCH ×3 (00:30→02:15)
[2018-09-14 00:34] LABS: Creatine Kinase 119 U/L (26-192)
--- NOTE | 2018-09-14 00:48 | CT ---
EXAM DATE: 09/14/2018 12:33 AM EST AGE/SEX: 62 years / Female INDICATIONS: Stroke alert, slurred speech, left sided facial droop and left sided weakness. CLINICAL DATA: This is the patient's initial encounter. Patient reports that signs and symptoms have been present for 1 day and indicates a pain score of 0/10. MEDICAL/SURGICAL HISTORY: Cerebrovascular disease. Hypertension. None. RADIATION DOSE: 9.97 CTDI (mGy) ; Combined studies COMPARISON: No prior exams available for comparison. TECHNIQUE: Volumetric scanning was performed using a multirow detector CT scanner during bolus infus ion of 100 ml Visipaque 320 (iodixanol) nonionic water-soluble contrast as a cumulative dose for mul tiple exams. The data was postprocessed with a variety of visualization algorithms including full-v olume maximum intensity projection, multiplanar sliding thin-slab reformation, curved-planar reformat ion, and surface-rendering techniques. Using automated exposure control and adjustment of the mA and /or kV according to patient size, radiation dose was kept as low as reasonably achievable to obtain o ptimal diagnostic quality images. DICOM format image data is available electronically for review and comparison. Percent stenosis is calculated using the diameter of the stenotic region over the diameter of the nor mal distal internal carotid artery. FINDINGS: Aortic Arch: There is a three-vessel origin of the great vessels from the aorta. There is atheroscle rotic disease at the proximal left subclavian artery but no high-grade stenosis is present. Right Carotid: Common carotid artery demonstrates no significant atherosclerotic plaque or stenosis. There is mild calcified plaque in the carotid bulb and proximal external carotid artery. No high-gra de stenosis is present. Internal carotid artery demonstrates no significant narrowing. Left Carotid: The left common carotid artery demonstrates no significant atherosclerotic disease or stenosis. There is mild calcified plaque in the carotid bulb and proximal external carotid artery. In ternal carotid artery demonstrates no significant stenosis. Vertebrals: There is severe focal calcified plaque at the origin of the right vertebral artery. The vertebral arteries are codominant. No significant abnormality is identified within the neck. The visualized surrounding structures demonstrate no acute abnormality. Thyroid gland is enlarged. CONCLUSION: 1. Atherosclerotic disease within the carotid bulbs bilaterally. However, there is less than 50% ramón nosis. 2. Severe calcified plaque in the proximal right vertebral artery near its origin. Electronically signed by: Davian Gordon MD Board Certified Radiologist 09/14/2018 12:47 AM EST
--- NOTE | 2018-09-14 00:54 | XR ---
EXAM DATE: 09/14/2018 12:39 AM EST AGE/SEX: 62 years / Female INDICATIONS: Stroke alert. CLINICAL DATA: This is the patient's initial encounter. Patient reports that signs and symptoms have been present for 1 day and indicates a pain score of 0/10. MEDICAL/SURGICAL HISTORY: Hypothyroidism. Cerebrovascular disease. Hypertension. . Bilateral knees. Lumbar laminectomy. COMPARISON: [facility] – [place], CTA PULMONARY W CONTRAST W 3D, 09/01/2018. [facility] – [place], CHEST 1V SINGLE AP, 09/01/2018 . . FINDINGS: Portable AP view of the chest demonstrates cardiac silhouette size at the upper limits for normal. No effusion, consolidation, or pneumothorax is identified. The bones and soft tissues demonstrate no ac diana finding. EKG lines overlie the patient. CONCLUSION: Stable chest x-ray. No acute cardiopulmonary abnormality is identified. Electronically signed by: Davian Gordon MD Board Certified Radiologist 09/14/2018 12:53 AM EST
[2018-09-14] MEDS ORDERED: Naloxone Inj 0.4 MG/ML Vial IV.PUSH ONE ×2 (01:27→02:10)
[2018-09-14 01:56] LABS: ABG Base Excess 0.8 mmol/L (-2-2); ABG PCO2 58 mmHg (38-42); ABG PO2 62 mmHg (61-120)
--- NOTE | 2018-09-14 02:36 | P.HPCC ---
History of Present Illness Primary Care Physician: UNKNOWN History of Present Illness: 62-year-old female with past medical history of HTN and TIA was brought for an evaluation of stroke symptoms. The patient came to work and staff noticed she had left facial droop and slurred speech and unsteady in her gait. Said her speech is not normally like this. Left leg is also weaker. Patient said her symptoms started 4:30pm but she did not want to come in. Also complains of some sob. Denies any fever, chest pain, n/v, abdominal pain. Patient was seen and evaluated by neurologist regeneration operator Dr. Thomas. She had a CTA of the head and neck done that did not show any acute occlusions or emboli. However it shows severe atherosclerotic disease of the vertebral artery at the origin. In the emergency department the patient was also obtunded however it responded well to Narcan administration. Inpatient Certification: I certify that the inpatient services were ordered in accordance with Medicare regulations governing the order. This includes certification that hospital inpatient services are reasonable and necessary and in the case of services not specified as inpatient-only under 42 CFR 419.22(n), that they are appropriately provided as inpatient services in accordance to with the 2-midnight benchmark under 43 CFR 412.3(e) Review of Systems unobtainable due to mental status PMFSH - History History Provided By: Patient - Medical History Medical History: Medical History (Last Updated 09/14/18 @ 00:10 by Kg Tanner) CVA (cerebral vascular accident) HTN (hypertension) - Tobacco History Second Hand Smoke Exposure: No Smoking Status: Never smoker - Alcohol History How Often Do You Have a Drink Containing Alcohol: Monthly or less - Substance Use History Substance History: No History of Abuse - Immunization History Tetanus Immunization: >5 Years Medications and Allergies Active Medications: Active Medications Sodium Chloride (Ns Inj) 1,000 mls @ 70 mls/hr IV.CONT .[id number] LEE Last Admin: 09/14/18 00:58 Dose: 70 mls/hr Sodium Chloride (Ns Inj) 1,000 mls @ 1,000 mls/hr IV.SIG BOLUS LEE Stop: 09/14/18 03:14 Last Admin: 09/14/18 02:34 Dose: 1,000 mls/hr Levothyroxine Sodium (Synthroid) 100 mcg PO DAILY LEE Non-Formulary Medication (Levothyroxine [Levothyroxine]) 88 mcg PO DAILY LEE Allergies Allergy/AdvReac Type Severity Reaction Status Date / Time No Known Allergies Allergy Verified 09/13/18 23:54 Home Medications Medication Instructions Recorded Confirmed Type levothyroxine 88 mcg PO DAILY 09/14/18 09/14/18 History levothyroxine 100 mcg PO DAILY 09/14/18 09/14/18 History lisinopril 20 mg PO BID 09/14/18 09/14/18 History morphine 30 mg PO Q8H 09/14/18 09/14/18 History oxycodone-acetaminophen [Percocet] 1 tab PO Q8H PRN 09/14/18 09/14/18 History Results - Labs CBC & Chem 7: 09/14/18 00:03 Labs: Short CBC 09/14/18 Range/Units 00:03 WBC 9.1 (4.0-11.0) th/mm3 Hgb 11.9 (11.6-15.3) gm/dL Hct 36.5 (35.0-46.0) % Plt Count 195 (150-450) th/mm3 Cardiac Enzymes 09/14/18 Range/Units 00:03 Total Creatine Kinase 119 (26-192) U/L Troponin I Less than 0.02 L (0.02-0.05) ng/mL - Imaging Impressions Head CT 09/14/18 00:00 CONCLUSION: 1. Stable noncontrast head CT. No acute intracranial abnormality is identified. 2. Chronic findings include generalized atrophy and chronic periventricular white matter change. This report was telephoned to Dr. Jimenes on 09/14/2017 at 12:19 AM. Head CTA 09/14/18 00:00 CONCLUSION: Atherosclerotic disease within the distal vertebral arteries bilaterally and within the intracranial aspect of the internal carotid arteries. No large vessel occlusion is present. The above findings were telephoned to Dr. Thomas 09/14/2018 at 12:25 AM. Neck CTA 09/14/18 00:00 CONCLUSION: 1. Atherosclerotic disease within the carotid bulbs bilaterally. However, there is less than 50% stenosis. 2. Severe calcified plaque in the proximal right vertebral artery near its origin. Chest X-Ray 09/14/18 00:01 CONCLUSION: Stable chest x-ray. No acute cardiopulmonary abnormality is identified. Exam Vital signs: Vital Signs 09/13/18 23:58 09/14/18 00:08 09/14/18 00:11 Temperature 99 F Pulse Rate 84 Respiratory Rate 10 L Blood Pressure 97/45 L Pulse Oximetry 97 97 97 09/14/18 00:12 09/14/18 00:34 09/14/18 01:01 Temperature Pulse Rate 73 84 74 Respiratory Rate 10 L 10 L Blood Pressure 75/40 L 89/51 L Pulse Oximetry 89 L 89 L 09/14/18 01:27 09/14/18 01:52 09/14/18 02:04 Temperature Pulse Rate 76 81 78 Respiratory Rate 12 18 11 L Blood Pressure 98/54 L 162/68 H 86/47 L Pulse Oximetry 85 L 99 93 L Intake & Output 09/13/18 09/13/18 09/14/18 06:59 18:59 06:59 Intake Total 1999 Balance 1999 Weight 102.5 kg Intake: IV 1999 NS Inj 1,000 ML @ 1000 mls/hr 1999 IV.SIG BOLUS LEE Rx#:[id number] - Constitutional no acute distress - Routine HEENT Exam Head: Present: atraumatic Eye: Present: PERRL ENT: Present: mucous membranes moist - Routine Neck Exam Present: supple, full ROM. Absent: JVD, carotid bruit - Routine Respiratory Exam Absent: accessory muscle use, wheezes, crackles - Routine Cardiovascular Exam Present: RRR, S1, S2 - Routine Abdominal Exam Present: soft, normoactive bowel sounds. Absent: tenderness, distended - Routine Extremities Exam Absent: cyanosis, clubbing, edema - Routine Skin Exam Present: intact. Absent: cyanosis, erythema - Routine Neurological Exam Present: altered mental status, moving all extremities Septic Shock Reassessment Septic shock perfusion: reassessment completed Caprini VTE Risk Assessment Caprini VTE Risk Assessment: Moderate/High Risk (score >= 2) Caprini Risk Assessment Model: Point Value = 1 Point Value = 2 Point Value = 3 Point Value = 5 Age 41-60 Minor surgery BMI > 25 kg/m2 Swollen legs Varicose veins or History of unexplained or recurrent spontaneous Oral contraceptives or hormone replacement Sepsis (< 1 month) Serious lung disease, including pneumonia (< 1 month) Abnormal pulmonary function Acute myocardial infarction Congestive heart failure (< 1 month) History of inflammatory bowel disease Medical patient at bed rest Age 61-74 Arthroscopic surgery Major open surgery (> 45 min) Laparoscopic surgery (> 45 min) Malignancy Confined to bed (> 72 hours) Immobilizing plaster cast Central venous access Age >= 75 History of VTE Family history of VTE Factor V Leiden Prothrombin [id number] Lupus anticoagulant Anticardiolipin antibodies Elevated serum homocysteine Heparin-induced thrombocytopenia Other congenital or acquired thrombophilia Stroke (< 1 month) Elective arthroplasty Hip, pelvis, or leg fracture Acute spinal cord injury (< 1 month) Prophylaxis Regimen: Total Risk Factor Score Risk Level Prophylaxis Regimen 0-1 Low Early ambulation 2 Moderate Order ONE of the following: *Sequential Compression Device (SCD) *Heparin 5000 units SQ BID 3-4 Higher Order ONE of the following medications: *Heparin 5000 units SQ TID *Enoxaparin/Lovenox 40 mg SQ daily (WT < 150 kg, CrCl > 30 mL/min) *Enoxaparin/Lovenox 30 mg SQ daily (WT < 150 kg, CrCl > 10-29 mL/min) *Enoxaparin/Lovenox 30 mg SQ BID (WT < 150 kg, CrCl > 30 mL/min) AND/OR *Sequential Compression Device (SCD) 5 or more Highest Order ONE of the following medications: *Heparin 5000 units SQ TID (Preferred with Epidurals) *Enoxaparin/Lovenox 40 mg SQ daily (WT < 150 kg, CrCl > 30 mL/min) *Enoxaparin/Lovenox 30 mg SQ daily (WT < 150 kg, CrCl > 10-29 mL/min) *Enoxaparin/Lovenox 30 mg SQ BID (WT < 150 kg, CrCl > 30 mL/min) AND *Sequential Compression Device (SCD) Assessment and Plan - Assessment and Plan Plan: TIA -CTA negative -PT and OT -Lipid profile -Hemoglobin A1c -Further management per neurology Hypothyroidism -Levothyroxine Hypertension -Hold all home antihypertensive meds due to borderline hypotension in the ED -IV fluid hydration -Telemetry -Resume home meds when indicated DVT GI prophylaxis -Teds SCDs -Subcu heparin -Pepcid Level 2
[2018-09-14] MEDS ORDERED: Acetaminophen 325 MG Tablet PO PRN (02:37)
[2018-09-14] MEDS ORDERED: Bisacodyl 10 MG Supp RECTAL PRN (02:37)
[2018-09-14] MEDS: Sod Chloride 0.9% Inj 1,000 ML IV.CONT SCH ×2 (03:24→09:38)
[2018-09-14] MEDS ORDERED: Chlorhexidine Gluconate 2% 1 Pack (2 Cloths) TOPICAL PRN (04:00)
[2018-09-14] MEDS ORDERED: Sodium Chlor 0.9% Inj 500 ML IV.SIG SCH (04:00)
[2018-09-14] MEDS: Heparin - SQ 10,000 UNITS/ML Vial SQ SCH ×3 (04:01→18:39)
[2018-09-14] MEDS: Chlorhexidine Gluconate 2% 1 Pack (2 Cloths) TOPICAL SCH (05:27)
[2018-09-14] MEDS ORDERED: Albumin Human 5% Inj 500 ML IV.SIG ONE (05:36)
[2018-09-14] MEDS: Levothyroxine 100 MCG Tablet PO SCH (06:25)
[2018-09-14 06:57] LABS: Bacteria,Urine Many /hpf; Bilirubin,Urine Negative (Negative); Clarity,Urine Hazy (Clear); Color,Urine Yellow (Yellw/Straw); Glucose,Urine (UA) Negative (Negative); Hyaline Casts,Urine 3 /lpf (0-3); Leukocyte Esterase,Urine Moderate (Negative); Mucus,Urine Few /lpf (Occasional); Nitrite,Urine Positive (Negative)
[2018-09-14 07:07] LABS: Amphetamine Screen,Urine Neg (Neg); Barbiturate Screen,Urine Neg (Neg); Cannabinoid Screen,Urine Neg (Neg); Cocaine Screen,Urine Neg (Neg); Opiate Screen,Urine Pos (Neg)
[2018-09-14] MEDS: Levothyroxine 88 MCG Tablet PO SCH (07:29)
--- NOTE | 2018-09-14 08:03 | ECG ---
Date Performed: 09/14/2018 Time Performed: 00:24:46 PTAGE: 62 years EKG: Sinus rhythm NORMAL ECG NO PREVIOUS TRACING DOCTOR: John Wood Interpretating Date/Time 09/14/2018 08:01:47
[2018-09-14] MEDS: Senna/Docusate Sodium 8.6/50 MG Tablet PO SCH ×2 (08:08→20:02)
[2018-09-14 08:29] LABS: Baso % (Auto) 0.3 % (0.0-2.0); Eos # (Auto) 0.1 th/mm3 (0.0-0.4); Eos % (Auto) 1.7 % (0.0-4.0); Hemoglobin 9.1 gm/dL (11.6-15.3); Lymph # (Auto) 0.7 th/mm3 (1.0-4.8); Lymph % (Auto) 11.8 % (9.0-44.0); Mean Corpuscular HGB Conc 31.5 % (32.0-36.0); Mean Corpuscular Hemoglobin 26.6 pg (27.0-34.0); Mean Corpuscular Volume 84.3 fL (80.0-100.0); Mean Platelet Volume 8.7 fL (7.0-11.0); Mono # (Auto) 0.4 th/mm3 (0.0-0.9); Mono % (Auto) 6.8 % (0.0-8.0); Neut # (Auto) 4.6 th/mm3 (1.8-7.7); Neut % (Auto) 79.4 % (16.0-70.0); Platelet Count 139 th/mm3 (150-450); Red Blood Count 3.44 mil/mm3 (4.00-5.30); Red Cell Distribution Width 15.6 % (11.6-17.2); White Blood Count 5.8 th/mm3 (4.0-11.0)
[2018-09-14] MEDS ORDERED: Sod Chloride 0.9% Inj 1,000 ML IV.SIG ONE (09:00)
[2018-09-14] MEDS ORDERED: Famotidine PF Inj 20 MG/2 ML Vial IV.PUSH SCH (09:00)
[2018-09-14 09:06] LABS: Albumin 3.2 g/dL (3.4-5.0); Calcium 7.3 mg/dL (8.5-10.1); Carbon Dioxide 28.2 meq/L (21.0-32.0); Potassium 4.2 meq/L (3.5-5.1); Total Protein 5.9 g/dL (6.4-8.2)
[2018-09-14 09:26] LABS: ABG Base Excess -3.2 mmol/L (-2-2); ABG PCO2 56 mmHg (38-42); ABG PO2 90 mmHG (61-120)
--- NOTE | 2018-09-14 11:11 | P.PNIM ---
Subjective Interval history: pt again reports an event at work where she bends over to pick something up from floor. She gets dizzy and hypotensive. She has been admitted multiple times to [place] with last time being at end of August. Major w/up in past with no answer Physical Exam Vital signs: Last Vital Signs Temp 98.8 F 09/14/18 04:00 Pulse 71 09/14/18 10:00 Resp 18 09/14/18 09:26 BP 95/63 L 09/14/18 04:00 Pulse Ox 100 09/14/18 08:00 Narrative: heart reg lung cta abdss/nt ext no edema Results Labs CBC & Chem 7: 09/14/18 07:55 09/14/18 07:55 Assessment and Plan Plan 1. dizziness, near syncope, hypotension Pt has long hx of intermittent dizziness/confusion In January 2018 had major w/up and neuro eval - Head CT (01/20) --> No acute intracranial abnormality, mucosal thickening in the left maxillary sinus with resolution of previous maxillary sinus fluid. - CT scan Cervical spine (01/20) --> No acute fracture, and mild canal and lateral recess stenosis at C4-5 similar to prior MRI. - Previous 2D echo (06/25) --> Estimated EF 55-60%, moderate thickening of posterior mitral valve leaflets, aortic valve sclerosis, trivial pulmonary valve regurg, trivial pericardial effusion, small left sided pleural effusion - Previous Lexiscan (06/26) --> No reversible defects to suggest acute ischemia. - MRI Brain (01/20) --> No acute findings in the brain. No evidence of acute infarction. Scattered areas of T2 prolongation in the supratentorial white matter unchanged from prior examination, probably ischemic. Left maxillary sinus disease. - Carotid US (01/20) --> Mild elevation left internal carotid velocity with normal velocity ratio, borderline abnormal, characteristics of 50-70% stenosis. Normal hemodynamic profile on the right side. - Cervical spine MRI (01/20) --> Abnormal appearance to the C4-5 level with disc/ osteophyte complex indenting on the thecal sac and causing mild cord compression. There is also severe bilateral bony neural foraminal stenosis and some signal abnormality within the marrow of the adjacent vertebral bodies suggesting the findings may be partially acute. There is no signal abnormalitywithin the substance of the compressed cord.. - Thoracic spine MRI (01/20) --> Small central bulge of the T4-T5 disc without evidence of cord compression. No signal abnormality seen within the substance of the thoracic cord. - Lumbar puncture performed on 01/22 - Noted trace gross blood in tubes 1 and 4 and 155 RBC in tube 4 - CSF protein level is 106.7 - patient s/p bilateral temporal artery biopsy with Dr. Houston 01/23/18. Pathology reveals: Focal medial calcification - Holter Monitor (06/25/17) --> NSR - MRI brain (09/03/18) --> NO acute findings In August 2018: Pt was admitted to ICU after presenting with severe hypotension. 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 She became dizzy and then nauseated. Her bp was checked and found to be low. ICU thought mild dehydration. Could consider Vasovagal. CTA chest:. No pulmonary embolus or other acute cardiopulmonary disease.2. Stable subcentimeter pulmonary nodules. Old granulomatous changes are noted.3. Coronary artery calcification.4. Enlarged thyroid. If not previously evaluated , a outpatient thyroid ultrasound is recommended..5. Small hiatal hernia. CT brain: 1. No acute intracranial abnormality demonstrated.2. Chronic white matter changes are again seen. Carotid U/S 1. Right Internal Carotid Artery: No significant stenosis; minimal atherosclerotic plaque is visualized.2. Left Internal Carotid Artery: No significant stenosis; minimal atherosclerotic plaque is visualized. 3. Antegrade flow in both vertebral arteries. CTA Cartotids (09/03) --> NO acute findings cosyntropin stim test in ICU went from 2 to 15 after acth injection in August. Pt was readmitted to [place] with another hypotensive event at work...same scenario when she bends over to pick something up. check orthostatics hold bp meds and observe review her current med list with her as discrepancy on many lists I have found. unclear how she is actually taking meds below. I have reviewed her [facility] pharmacy list and discuss: morphine ER 30mg tid, norco 5 tid prn, gabapentin 400mg AM, 400mg noon, 1200mg hs, amitryptiline 25mg bedtime, baclofen 10mg bedtime, lisinipril 40mg ?qod, sertraline 100mg bid transfer from ICU PT eval. - Progress Note: Quality VTE Deep Vein Thrombosis/Pulmonary Embolism Present on Admission: No
--- NOTE | 2018-09-14 14:19 | ECG ---
Date Performed: 09/14/2018 Time Performed: 07:55:47 PTAGE: 62 years EKG: Sinus rhythm NORMAL ECG No significant change from prior electrocardiogram. PREVIOUS TRACING : 09/14/2018 00.24 DOCTOR: John Wood Interpretating Date/Time 09/14/2018 14:19:06
[2018-09-14 15:32] LABS: ABG Base Excess -3.8 mmol/L (-2-2); ABG PCO2 50 mmHg (38-42); ABG PO2 100 mmHg (61-120)
[2018-09-14 22:34] LABS: ABG Base Excess -2.5 mmol/L (-2-2); ABG PCO2 50 mmHg (38-42); ABG PO2 96 mmHG (61-120)
[2018-09-15 05:12] LABS: Baso % (Auto) 0.5 % (0.0-2.0); Eos # (Auto) 0.1 th/mm3 (0.0-0.4); Eos % (Auto) 4.1 % (0.0-4.0); Hematocrit 28.4 % (35.0-46.0); Hemoglobin 9.3 gm/dL (11.6-15.3); Lymph # (Auto) 0.5 th/mm3 (1.0-4.8); Lymph % (Auto) 15.2 % (9.0-44.0); Mean Corpuscular HGB Conc 32.7 % (32.0-36.0); Mean Corpuscular Hemoglobin 27.2 pg (27.0-34.0); Mean Corpuscular Volume 83.3 fL (80.0-100.0); Mono # (Auto) 0.3 th/mm3 (0.0-0.9); Mono % (Auto) 8.5 % (0.0-8.0); Neut # (Auto) 2.4 th/mm3 (1.8-7.7); Neut % (Auto) 71.7 % (16.0-70.0); Platelet Count 109 th/mm3 (150-450); Red Blood Count 3.42 mil/mm3 (4.00-5.30); Red Cell Distribution Width 15.5 % (11.6-17.2); White Blood Count 3.3 th/mm3 (4.0-11.0)
[2018-09-15 05:19] LABS: Activated Partial Thrombo Time 30.9 sec (23.4-31.7); INR 1.1 Ratio; Prothrombin Time 10.8 sec (9.8-11.6)
[2018-09-15 05:36] LABS: Anion Gap 6 meq/L (5-15); Aspartate Aminotransferase 13 U/L (15-37); Blood Urea Nitrogen 13 mg/dL (7-18); Carbon Dioxide 24.5 meq/L (21.0-32.0); Chloride 113 meq/L (98-107); Glomerular Filtration Rate Greater Than 89 mL/min (>89); Glucose,Random 73 mg/dL (74-106); Potassium 4.2 meq/L (3.5-5.1); Sodium 143 meq/L (136-145)
[2018-09-15] MEDS: Heparin - SQ 10,000 UNITS/ML Vial SQ SCH ×3 (05:37→18:00)
[2018-09-15] MEDS: Chlorhexidine Gluconate 2% 1 Pack (2 Cloths) TOPICAL SCH (05:37)
[2018-09-15 05:41] LABS: Alanine Aminotransferase 13 U/L (10-53); Alkaline Phosphatase 85 U/L (45-117); Phosphorus 3.2 mg/dL (2.5-4.9)
[2018-09-15] MEDS: Levothyroxine 88 MCG Tablet PO SCH (06:08)
[2018-09-15] MEDS: Levothyroxine 100 MCG Tablet PO SCH (06:08)
[2018-09-15] MEDS: Sod Chloride 0.9% Inj 1,000 ML IV.CONT SCH ×5 (07:00→20:04)
[2018-09-15] MEDS: Senna/Docusate Sodium 8.6/50 MG Tablet PO SCH ×2 (09:04→20:42)
--- NOTE | 2018-09-15 09:10 | P.PNIM ---
Subjective Interval history: just vomited bile w/out warning no abdomen pain or nausea Physical Exam Vital signs: Last Vital Signs Temp 98.1 F 09/15/18 04:00 Pulse 74 09/15/18 06:00 Resp 19 09/15/18 04:04 BP 133/65 09/15/18 04:00 Pulse Ox 100 09/15/18 07:41 Narrative: heart reg lung cta abdss/nt ext no edema Results Labs CBC & Chem 7: 09/15/18 03:30 09/15/18 03:30 Assessment and Plan Plan 1. dizziness, near syncope, hypotension Pt has long hx of intermittent dizziness/confusion In January 2018 had major w/up and neuro eval - Head CT (01/20) --> No acute intracranial abnormality, mucosal thickening in the left maxillary sinus with resolution of previous maxillary sinus fluid. - CT scan Cervical spine (01/20) --> No acute fracture, and mild canal and lateral recess stenosis at C4-5 similar to prior MRI. - Previous 2D echo (06/25) --> Estimated EF 55-60%, moderate thickening of posterior mitral valve leaflets, aortic valve sclerosis, trivial pulmonary valve regurg, trivial pericardial effusion, small left sided pleural effusion - Previous Lexiscan (06/26) --> No reversible defects to suggest acute ischemia. - MRI Brain (01/20) --> No acute findings in the brain. No evidence of acute infarction. Scattered areas of T2 prolongation in the supratentorial white matter unchanged from prior examination, probably ischemic. Left maxillary sinus disease. - Carotid US (01/20) --> Mild elevation left internal carotid velocity with normal velocity ratio, borderline abnormal, characteristics of 50-70% stenosis. Normal hemodynamic profile on the right side. - Cervical spine MRI (01/20) --> Abnormal appearance to the C4-5 level with disc/ osteophyte complex indenting on the thecal sac and causing mild cord compression. There is also severe bilateral bony neural foraminal stenosis and some signal abnormality within the marrow of the adjacent vertebral bodies suggesting the findings may be partially acute. There is no signal abnormalitywithin the substance of the compressed cord.. - Thoracic spine MRI (01/20) --> Small central bulge of the T4-T5 disc without evidence of cord compression. No signal abnormality seen within the substance of the thoracic cord. - Lumbar puncture performed on 01/22 - Noted trace gross blood in tubes 1 and 4 and 155 RBC in tube 4 - CSF protein level is 106.7 - patient s/p bilateral temporal artery biopsy with Dr. Houston 01/23/18. Pathology reveals: Focal medial calcification - Holter Monitor (06/25/17) --> NSR - MRI brain (09/03/18) --> NO acute findings In August 2018: Pt was admitted to ICU after presenting with severe hypotension. 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 She became dizzy and then nauseated. Her bp was checked and found to be low. ICU thought mild dehydration. Could consider Vasovagal. CTA chest:. No pulmonary embolus or other acute cardiopulmonary disease.2. Stable subcentimeter pulmonary nodules. Old granulomatous changes are noted.3. Coronary artery calcification.4. Enlarged thyroid. If not previously evaluated , a outpatient thyroid ultrasound is recommended..5. Small hiatal hernia. CT brain: 1. No acute intracranial abnormality demonstrated.2. Chronic white matter changes are again seen. Carotid U/S 1. Right Internal Carotid Artery: No significant stenosis; minimal atherosclerotic plaque is visualized.2. Left Internal Carotid Artery: No significant stenosis; minimal atherosclerotic plaque is visualized. 3. Antegrade flow in both vertebral arteries. CTA Cartotids (09/03) --> NO acute findings cosyntropin stim test in ICU went from 2 to 15 after acth injection in August. -Pt was readmitted to [facility] with another hypotensive event at work...same scenario when she bends over to pick something up. She had hypercapnea and resp. acidosis in ED. given narcan and aroused. Was initially called cva alert. check orthostatics resume 1/2 of her lisinipril dose. stop her home nifedipine for now resume 1/3 of her home long acting morphine dose. prn norco resume lower dose of her gabapentin. hold the baclofen. resume her sertraline PT and oob resume diet. review her current med list with her as discrepancy on many lists I have found. unclear how she is actually taking meds below. I have reviewed her [facility] pharmacy list and discuss: morphine ER 30mg tid, norco 5 tid prn, gabapentin 1200mg in morning and usually 400mg at night prior to work. amitryptiline 25mg bedtime as needed., baclofen 10mg bedtime which is around 8am. , lisinipril 20mg bid, sertraline 100mg bid. procardia 30mg daily - Progress Note: Quality VTE Deep Vein Thrombosis/Pulmonary Embolism Present on Admission: No
[2018-09-15] MEDS ORDERED: Pantoprazole Inj 40 MG Vial IV.PUSH ONE (09:30)
[2018-09-15] MEDS: Sertraline 100 MG Tablet PO SCH (10:28)
[2018-09-15] MEDS: Lisinopril 10 MG Tablet PO SCH ×2 (10:28→20:42)
[2018-09-15] MEDS: Gabapentin 400 MG Capsule PO SCH (10:28)
[2018-09-15] MEDS: Morphine Sulfate 30 MG SR Tablet PO SCH (11:01)
[2018-09-16] MEDS: Heparin - SQ 10,000 UNITS/ML Vial SQ SCH ×3 (04:06→18:20)
[2018-09-16] MEDS: Chlorhexidine Gluconate 2% 1 Pack (2 Cloths) TOPICAL SCH (04:08)
[2018-09-16] MEDS: Levothyroxine 88 MCG Tablet PO SCH (06:34)
[2018-09-16] MEDS: Levothyroxine 100 MCG Tablet PO SCH (06:34)
[2018-09-16 08:43] LABS: Baso % (Auto) 0.6 % (0.0-2.0); Eos # (Auto) 0.1 th/mm3 (0.0-0.4); Eos % (Auto) 2.5 % (0.0-4.0); Hematocrit 29.7 % (35.0-46.0); Hemoglobin 9.7 gm/dL (11.6-15.3); Lymph # (Auto) 0.4 th/mm3 (1.0-4.8); Lymph % (Auto) 12.8 % (9.0-44.0); Mean Corpuscular HGB Conc 32.8 % (32.0-36.0); Mean Corpuscular Hemoglobin 26.9 pg (27.0-34.0); Mono # (Auto) 0.3 th/mm3 (0.0-0.9); Mono % (Auto) 8.5 % (0.0-8.0); Neut # (Auto) 2.5 th/mm3 (1.8-7.7); Neut % (Auto) 75.6 % (16.0-70.0); Platelet Count 135 th/mm3 (150-450); Red Blood Count 3.62 mil/mm3 (4.00-5.30); White Blood Count 3.4 th/mm3 (4.0-11.0)
[2018-09-16] MEDS: Senna/Docusate Sodium 8.6/50 MG Tablet PO SCH ×2 (08:59→20:01)
[2018-09-16] MEDS: Morphine Sulfate 30 MG SR Tablet PO SCH (08:59)
[2018-09-16] MEDS: Gabapentin 400 MG Capsule PO SCH (08:59)
[2018-09-16] MEDS: Lisinopril 10 MG Tablet PO SCH ×2 (09:00→20:01)
[2018-09-16] MEDS: Sertraline 100 MG Tablet PO SCH (09:00)
--- NOTE | 2018-09-16 09:08 | P.PNIM ---
Subjective Interval history: pt still has some nausea. vomited bile x 1 yesterday. reports oob with ambulation and feeling better. Physical Exam Vital signs: Last Vital Signs Temp 98.8 F 09/16/18 00:00 Pulse 82 09/16/18 06:00 Resp 18 09/16/18 09:01 BP 142/67 H 09/16/18 04:00 Pulse Ox 94 L 09/16/18 04:00 Narrative: heart reg lung cta abdss/nt ext no edema Results Labs CBC & Chem 7: 09/16/18 07:34 09/16/18 07:34 Assessment and Plan Plan 1. dizziness, near syncope, hypotension Pt has long hx of intermittent dizziness/confusion In January 2018 had major w/up and neuro eval - Head CT (01/20) --> No acute intracranial abnormality, mucosal thickening in the left maxillary sinus with resolution of previous maxillary sinus fluid. - CT scan Cervical spine (01/20) --> No acute fracture, and mild canal and lateral recess stenosis at C4-5 similar to prior MRI. - Previous 2D echo (06/25) --> Estimated EF 55-60%, moderate thickening of posterior mitral valve leaflets, aortic valve sclerosis, trivial pulmonary valve regurg, trivial pericardial effusion, small left sided pleural effusion - Previous Lexiscan (06/26) --> No reversible defects to suggest acute ischemia. - MRI Brain (01/20) --> No acute findings in the brain. No evidence of acute infarction. Scattered areas of T2 prolongation in the supratentorial white matter unchanged from prior examination, probably ischemic. Left maxillary sinus disease. - Carotid US (01/20) --> Mild elevation left internal carotid velocity with normal velocity ratio, borderline abnormal, characteristics of 50-70% stenosis. Normal hemodynamic profile on the right side. - Cervical spine MRI (01/20) --> Abnormal appearance to the C4-5 level with disc/ osteophyte complex indenting on the thecal sac and causing mild cord compression. There is also severe bilateral bony neural foraminal stenosis and some signal abnormality within the marrow of the adjacent vertebral bodies suggesting the findings may be partially acute. There is no signal abnormalitywithin the substance of the compressed cord.. - Thoracic spine MRI (01/20) --> Small central bulge of the T4-T5 disc without evidence of cord compression. No signal abnormality seen within the substance of the thoracic cord. - Lumbar puncture performed on 01/22 - Noted trace gross blood in tubes 1 and 4 and 155 RBC in tube 4 - CSF protein level is 106.7 - patient s/p bilateral temporal artery biopsy with Dr. Houston 01/23/18. Pathology reveals: Focal medial calcification - Holter Monitor (06/25/17) --> NSR - MRI brain (09/03/18) --> NO acute findings In August 2018: Pt was admitted to ICU after presenting with severe hypotension. 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 She became dizzy and then nauseated. Her bp was checked and found to be low. ICU thought mild dehydration. Could consider Vasovagal. CTA chest:. No pulmonary embolus or other acute cardiopulmonary disease.2. Stable subcentimeter pulmonary nodules. Old granulomatous changes are noted.3. Coronary artery calcification.4. Enlarged thyroid. If not previously evaluated , a outpatient thyroid ultrasound is recommended..5. Small hiatal hernia. CT brain: 1. No acute intracranial abnormality demonstrated.2. Chronic white matter changes are again seen. Carotid U/S 1. Right Internal Carotid Artery: No significant stenosis; minimal atherosclerotic plaque is visualized.2. Left Internal Carotid Artery: No significant stenosis; minimal atherosclerotic plaque is visualized. 3. Antegrade flow in both vertebral arteries. CTA Cartotids (09/03) --> NO acute findings cosyntropin stim test in ICU went from 2 to 15 after acth injection in August. -Pt was readmitted to [place] with another hypotensive event at work...same scenario when she bends over to pick something up. She had hypercapnea and resp. acidosis in ED. given narcan and aroused. Was initially called cva alert. resumed 1/2 of her lisinipril dose. stop her home nifedipine for now resumed 1/3 of her home long acting morphine dose. prn norco resumed lower dose of her gabapentin. hold the baclofen. resumed her sertraline add rocephin for ecoli uti monitor her blood pressure and for any dizziness/hypotension for next 24hr on current regimen. Also monitor for recurrent n/v today. In general it would seem her medication regimen at home could be the etiology for her presentation. monitor hgb. recent hgb has been 10. current rising and around 9. no sign of bleeding. PT and oob resume diet. reviewed her current home med list with her as discrepancy on many lists I have found. unclear how she is actually taking meds below. I have reviewed her [facility] pharmacy list and discuss: morphine ER 30mg tid, norco 5 tid prn, gabapentin 1200mg in morning and usually 400mg at night prior to work. amitryptiline 25mg bedtime as needed., baclofen 10mg bedtime which is around 8am. , lisinipril 20mg bid, sertraline 100mg bid. procardia 30mg daily - Progress Note: Quality VTE Deep Vein Thrombosis/Pulmonary Embolism Present on Admission: No
[2018-09-16 09:10] LABS: Anion Gap 11 meq/L (5-15); Blood Urea Nitrogen 10 mg/dL (7-18); Calcium 8.4 mg/dL (8.5-10.1); Carbon Dioxide 21.1 meq/L (21.0-32.0); Chloride 109 meq/L (98-107); Glomerular Filtration Rate Greater Than 89 mL/min (>89); Glucose,Random 71 mg/dL (74-106); Potassium 3.9 meq/L (3.5-5.1); Sodium 141 meq/L (136-145)
[2018-09-16] MEDS: Sod Chloride 0.9% Inj 1,000 ML IV.CONT SCH ×3 (10:29→23:26)
[2018-09-16] MEDS: Pantoprazole Inj 40 MG Vial IV.PUSH SCH (14:23)
--- NOTE | 2018-09-16 14:35 | XR ---
EXAM DATE: 09/16/2018 2:16 PM EST AGE/SEX: 62 years / Female INDICATIONS: Pain in chest and throat. CLINICAL DATA: This is the patient's subsequent encounter. Patient reports that signs and symptoms h ave been present for 1 day and indicates a pain score of 0/10. MEDICAL/SURGICAL HISTORY: . Hypothyroidism. Cerebrovascular disease. Hypertension. . Bilateral knees. Lumbar laminectomy. . COMPARISON: No prior exams available for comparison. FINDINGS: The abdominal bowel gas pattern is normal. Stool throughout the colon possibly representing some de gree of constipation. No abnormal masses, calcifications, or organomegaly is seen. The osseous struc tures are unremarkable. CONCLUSION: 1. Stool throughout the colon possibly representing some degree of constipation. 2. Otherwise negative. Nonobstructive bowel gas pattern without pneumoperitoneum Electronically signed by: Caleb Ramires MD Board Certified Radiologist 09/16/2018 2:33 PM EST
[2018-09-16] MEDS ORDERED: Sod Phosphate/Sod Biphosphate (Adult) Enema 133 ML Bottle RECTAL ONE (14:48)
[2018-09-16] MEDS ORDERED: Magnesium Citrate Liq 300 ML Bottle PO ONE (14:48)
--- NOTE | 2018-09-16 22:12 | US ---
EXAM DATE: 09/16/2018 9:48 PM EST AGE/SEX: 62 years / Female INDICATIONS: Abdominal pain. CLINICAL DATA: This is the patient's initial encounter. Patient reports that signs and symptoms have been present for 1 day and indicates a pain score of 0/10. MEDICAL/SURGICAL HISTORY: Hypertension. Cerebrovascular accident. None. COMPARISON: [facility] [place], [place] KIDNEY/RENAL/BLADDER, 09/01/2018. . MEASUREMENTS: Liver:__ 15.8 cm. Right Kidney:__ 9.5 x 5.5 x 4.9 cm. FINDINGS: Liver: 11 mm cyst in the central right lobe. No solid lesions. Portal Vein: Hepatopedal flow seen in portal vein. Common Duct: Not visualized. Gallbladder: 6 mm echogenic nonshadowing round focus near the neck of the gallbladder on the nondepe ndent wall may represent a stone or cholesterol polyp. Pancreas: Not well visualized. Right Kidney: Normal echogenicity and cortical thickness. No mass or hydronephrosis. Other: Right pleural effusion. CONCLUSION: 1. Nonshadowing 6 mm hypoechogenic focus near the neck of the gallbladder could represent polyp vers us stone. Common bile duct dimension cannot be reported due to nonvisualization 2. Right pleural effusion. Electronically signed by: Sundeep Zacarias MD Board Certified Radiologist 09/16/2018 10:11 PM EST
[2018-09-17] MEDS: Heparin - SQ 10,000 UNITS/ML Vial SQ SCH ×3 (03:27→21:37)
[2018-09-17] MEDS: Pantoprazole Inj 40 MG Vial IV.PUSH SCH ×2 (03:27→16:18)
[2018-09-17] MEDS: Levothyroxine 88 MCG Tablet PO SCH (06:09)
[2018-09-17] MEDS: Levothyroxine 100 MCG Tablet PO SCH (06:09)
[2018-09-17] MEDS: Sod Chloride 0.9% Inj 1,000 ML IV.CONT SCH ×3 (06:14→16:19)
[2018-09-17] MEDS: Chlorhexidine Gluconate 2% 1 Pack (2 Cloths) TOPICAL SCH (06:14)
[2018-09-17 07:06] LABS: Baso % (Auto) 0.5 % (0.0-2.0); Eos # (Auto) 0.1 th/mm3 (0.0-0.4); Eos % (Auto) 3.1 % (0.0-4.0); Hemoglobin 10.2 gm/dL (11.6-15.3); Lymph # (Auto) 0.4 th/mm3 (1.0-4.8); Lymph % (Auto) 13.2 % (9.0-44.0); Mean Corpuscular Hemoglobin 26.8 pg (27.0-34.0); Mean Corpuscular Volume 81.3 fL (80.0-100.0); Mean Platelet Volume 8.5 fL (7.0-11.0); Mono # (Auto) 0.3 th/mm3 (0.0-0.9); Mono % (Auto) 11.3 % (0.0-8.0); Neut # (Auto) 2.2 th/mm3 (1.8-7.7); Neut % (Auto) 71.9 % (16.0-70.0); Platelet Count 143 th/mm3 (150-450); Red Blood Count 3.82 mil/mm3 (4.00-5.30); Red Cell Distribution Width 14.7 % (11.6-17.2); White Blood Count 3.1 th/mm3 (4.0-11.0)
[2018-09-17 07:10] LABS: Anion Gap 11 meq/L (5-15); Blood Urea Nitrogen 6 mg/dL (7-18); Calcium 8.3 mg/dL (8.5-10.1); Carbon Dioxide 24.4 meq/L (21.0-32.0); Chloride 107 meq/L (98-107); Glomerular Filtration Rate Greater Than 89 mL/min (>89); Glucose,Random 71 mg/dL (74-106); Potassium 3.5 meq/L (3.5-5.1); Sodium 142 meq/L (136-145)
[2018-09-17] MEDS: Morphine Sulfate 30 MG SR Tablet PO SCH (09:01)
[2018-09-17] MEDS: Lisinopril 10 MG Tablet PO SCH ×2 (09:02→21:37)
[2018-09-17] MEDS: Senna/Docusate Sodium 8.6/50 MG Tablet PO SCH ×2 (09:02→21:37)
[2018-09-17] MEDS: Sertraline 100 MG Tablet PO SCH (09:02)
[2018-09-17] MEDS: Gabapentin 400 MG Capsule PO SCH (09:02)
--- NOTE | 2018-09-17 15:49 | P.PNIM ---
Subjective Interval history: Pt reports that she had a large BM this AM. \ Pt c/o continued nausea and one episode of small vomit. Pt's PO intake has been poor. Pt states that she feels much better from admission. Dizziness has improved. However, nursing reports that pt has been poorly motivate to get out of bed today. Physical Exam Vital signs: Last Vital Signs Temp 98.6 F 09/17/18 12:00 Pulse 72 09/17/18 14:00 Resp 20 09/17/18 12:00 BP 161/92 H 09/17/18 12:00 Pulse Ox 95 09/17/18 12:00 Narrative: GENERAL: This is a well-nourished, well-developed patient, in no apparent distress. CARDIOVASCULAR: Regular rate and rhythm without murmurs, gallops, or rubs. RESPIRATORY: Clear to auscultation. Breath sounds equal bilaterally. No wheezes , rales, or rhonchi. GASTROINTESTINAL: Abdomen soft, non-tender, nondistended. Normal active bowel sounds MUSCULOSKELETAL: Extremities without clubbing, cyanosis, or edema. NEURO: Alert & Oriented x4 to person, place, time, situation. Moves all ext x4 Results Labs CBC & Chem 7: 09/17/18 06:02 09/17/18 06:02 Assessment and Plan Plan 1. dizziness, near syncope, hypotension Pt has long hx of intermittent dizziness/confusion In January 2018 had major w/up and neuro eval - Head CT (01/20) --> No acute intracranial abnormality, mucosal thickening in the left maxillary sinus with resolution of previous maxillary sinus fluid. - CT scan Cervical spine (01/20) --> No acute fracture, and mild canal and lateral recess stenosis at C4-5 similar to prior MRI. - Previous 2D echo (06/25) --> Estimated EF 55-60%, moderate thickening of posterior mitral valve leaflets, aortic valve sclerosis, trivial pulmonary valve regurg, trivial pericardial effusion, small left sided pleural effusion - Previous Lexiscan (06/26) --> No reversible defects to suggest acute ischemia. - MRI Brain (01/20) --> No acute findings in the brain. No evidence of acute infarction. Scattered areas of T2 prolongation in the supratentorial white matter unchanged from prior examination, probably ischemic. Left maxillary sinus disease. - Carotid US (01/20) --> Mild elevation left internal carotid velocity with normal velocity ratio, borderline abnormal, characteristics of 50-70% stenosis. Normal hemodynamic profile on the right side. - Cervical spine MRI (01/20) --> Abnormal appearance to the C4-5 level with disc/ osteophyte complex indenting on the thecal sac and causing mild cord compression. There is also severe bilateral bony neural foraminal stenosis and some signal abnormality within the marrow of the adjacent vertebral bodies suggesting the findings may be partially acute. There is no signal abnormalitywithin the substance of the compressed cord.. - Thoracic spine MRI (01/20) --> Small central bulge of the T4-T5 disc without evidence of cord compression. No signal abnormality seen within the substance of the thoracic cord. - Lumbar puncture performed on 01/22 - Noted trace gross blood in tubes 1 and 4 and 155 RBC in tube 4 - CSF protein level is 106.7 - patient s/p bilateral temporal artery biopsy with Dr. Houston 01/23/18. Pathology reveals: Focal medial calcification - Holter Monitor (06/25/17) --> NSR - MRI brain (09/03/18) --> NO acute findings In August 2018: Pt was admitted to ICU after presenting with severe hypotension. 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 She became dizzy and then nauseated. Her bp was checked and found to be low. ICU thought mild dehydration. Could consider Vasovagal. CTA chest:. No pulmonary embolus or other acute cardiopulmonary disease.2. Stable subcentimeter pulmonary nodules. Old granulomatous changes are noted.3. Coronary artery calcification.4. Enlarged thyroid. If not previously evaluated , a outpatient thyroid ultrasound is recommended..5. Small hiatal hernia. CT brain: 1. No acute intracranial abnormality demonstrated.2. Chronic white matter changes are again seen. Carotid U/S 1. Right Internal Carotid Artery: No significant stenosis; minimal atherosclerotic plaque is visualized.2. Left Internal Carotid Artery: No significant stenosis; minimal atherosclerotic plaque is visualized. 3. Antegrade flow in both vertebral arteries. CTA Cartotids (09/03) --> NO acute findings cosyntropin stim test in ICU went from 2 to 15 after acth injection in August. -Pt was readmitted to [place] with another hypotensive event at work...same scenario when she bends over to pick something up. She had hypercapnea and resp. acidosis in ED. given narcan and aroused. Was initially called cva alert. resumed 1/2 of her lisinipril dose. stop her home nifedipine for now resumed 1/3 of her home long acting morphine dose. prn norco resumed lower dose of her gabapentin. hold the baclofen. resumed her sertraline add rocephin for ecoli uti monitor her blood pressure and for any dizziness/hypotension for next 24hr on current regimen. Also monitor for recurrent n/v today. In general it would seem her medication regimen at home could be the etiology for her presentation. monitor hgb. recent hgb has been 10. current rising and around 9. no sign of bleeding. PT and oob resume diet. reviewed her current home med list with her as discrepancy on many lists I have found. unclear how she is actually taking meds below. I have reviewed her [facility] pharmacy list and discuss: morphine ER 30mg tid, norco 5 tid prn, gabapentin 1200mg in morning and usually 400mg at night prior to work. amitryptiline 25mg bedtime as needed., baclofen 10mg bedtime which is around 8am. , lisinipril 20mg bid, sertraline 100mg bid. procardia 30mg daily 09/17/18 - I agree that narcotics and polypharmacy may be the etiology of recurrent admission with hypotension - decrease morphine to 15mg qAM - stop prn percocet - encourage ambuation with hospital staff - repeat labs in AM - repeat KUB in AM - anticipate d/c to home in 1-2 days. Progress Note: Quality VTE Deep Vein Thrombosis/Pulmonary Embolism Present on Admission: No
--- NOTE | 2018-09-17 20:23 | XR ---
EXAM DATE: 09/17/2018 8:17 PM EST AGE/SEX: 62 years / Female INDICATIONS: Constipation. CLINICAL DATA: This is the patient's subsequent encounter. Patient reports that signs and symptoms h ave been present for 2 days and indicates a pain score of 0/10. MEDICAL/SURGICAL HISTORY: . Hypothyroidism. Cerebrovascular disease. Hypertension. . Bilateral knees. Lumbar laminectomy. COMPARISON: [facility], ABDOMEN 1V KUB, 09/16/2018. . FINDINGS: The abdominal bowel gas pattern is normal. No abnormal masses, calcifications, or organomegaly is s een. The osseous structures are unremarkable. There are multiple calcified phleboliths in the pelvis . CONCLUSION: Unremarkable bowel gas pattern. Electronically signed by: Puma Somers MD Board Certified Radiologist 09/17/2018 8:22 PM EST
--- NOTE | 2018-09-17 23:35 | ECG ---
Date Performed: 09/16/2018 Time Performed: 12:08:38 PTAGE: 62 years EKG: Sinus rhythm Low QRS voltages in limb leads Borderline ECG NO PREVIOUS TRACING DOCTOR: Brittni Pace Interpretating Date/Time 09/17/2018 23:33:02
[2018-09-18] MEDS: Pantoprazole Inj 40 MG Vial IV.PUSH SCH ×2 (01:55→14:42)
[2018-09-18] MEDS: Chlorhexidine Gluconate 2% 1 Pack (2 Cloths) TOPICAL SCH (03:47)
[2018-09-18] MEDS: Heparin - SQ 10,000 UNITS/ML Vial SQ SCH ×2 (04:12→10:47)
[2018-09-18] MEDS: Levothyroxine 88 MCG Tablet PO SCH (06:13)
[2018-09-18] MEDS: Levothyroxine 100 MCG Tablet PO SCH (06:13)
[2018-09-18] MEDS ORDERED: Morphine Sulfate 15 MG SR Tablet PO SCH (09:00)
[2018-09-18] MEDS: Lisinopril 10 MG Tablet PO SCH (09:49)
[2018-09-18] MEDS: Sertraline 100 MG Tablet PO SCH (09:49)
[2018-09-18] MEDS: Senna/Docusate Sodium 8.6/50 MG Tablet PO SCH (09:50)
[2018-09-18] MEDS: Gabapentin 400 MG Capsule PO SCH (09:51)
--- NOTE | 2018-09-18 16:09 | P.DS ---
DS: Providers Date of admission: 09/14/18 02:14 Primary care physician: UNKNOWN Consults: 09/14/18 02:37 Consult to Hospitalist Routine Consulting Provider: Ari Fletcher Reason for Consultation: AMS Notified:: Service Spoke with:: Benji Date Notified:: 09/14/18 Time Notified:: 02:44 Ordering Provider: SARAN Brief History from admission: 62-year-old female with past medical history of HTN and TIA was brought for an evaluation of stroke symptoms. The patient came to work and staff noticed she had left facial droop and slurred speech and unsteady in her gait. Said her speech is not normally like this. Left leg is also weaker. Patient said her symptoms started 4:30pm but she did not want to come in. Also complains of some sob. Denies any fever, chest pain, n/v, abdominal pain. Patient was seen and evaluated by neurologist cone operator Dr. Thomas. She had a CTA of the head and neck done that did not show any acute occlusions or emboli. However it shows severe atherosclerotic disease of the vertebral artery at the origin. In the emergency department the patient was also obtunded however it responded well to Narcan administration. DS: Summary 1. dizziness, near syncope, hypotension Pt has long hx of intermittent dizziness/confusion In January 2018 had major w/up and neuro eval - Head CT (01/20) --> No acute intracranial abnormality, mucosal thickening in the left maxillary sinus with resolution of previous maxillary sinus fluid. - CT scan Cervical spine (01/20) --> No acute fracture, and mild canal and lateral recess stenosis at C4-5 similar to prior MRI. - Previous 2D echo (06/25) --> Estimated EF 55-60%, moderate thickening of posterior mitral valve leaflets, aortic valve sclerosis, trivial pulmonary valve regurg, trivial pericardial effusion, small left sided pleural effusion - Previous Lexiscan (06/26) --> No reversible defects to suggest acute ischemia. - MRI Brain (01/20) --> No acute findings in the brain. No evidence of acute infarction. Scattered areas of T2 prolongation in the supratentorial white matter unchanged from prior examination, probably ischemic. Left maxillary sinus disease. - Carotid US (01/20) --> Mild elevation left internal carotid velocity with normal velocity ratio, borderline abnormal, characteristics of 50-70% stenosis. Normal hemodynamic profile on the right side. - Cervical spine MRI (01/20) --> Abnormal appearance to the C4-5 level with disc/ osteophyte complex indenting on the thecal sac and causing mild cord compression. There is also severe bilateral bony neural foraminal stenosis and some signal abnormality within the marrow of the adjacent vertebral bodies suggesting the findings may be partially acute. There is no signal abnormalitywithin the substance of the compressed cord.. - Thoracic spine MRI (01/20) --> Small central bulge of the T4-T5 disc without evidence of cord compression. No signal abnormality seen within the substance of the thoracic cord. - Lumbar puncture performed on 01/22 - Noted trace gross blood in tubes 1 and 4 and 155 RBC in tube 4 - CSF protein level is 106.7 - patient s/p bilateral temporal artery biopsy with Dr. Houston 01/23/18. Pathology reveals: Focal medial calcification - Holter Monitor (06/25/17) --> NSR - MRI brain (09/03/18) --> NO acute findings In August 2018: Pt was admitted to ICU after presenting with severe hypotension. 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 She became dizzy and then nauseated. Her bp was checked and found to be low. ICU thought mild dehydration. Could consider Vasovagal. CTA chest:. No pulmonary embolus or other acute cardiopulmonary disease.2. Stable subcentimeter pulmonary nodules. Old granulomatous changes are noted.3. Coronary artery calcification.4. Enlarged thyroid. If not previously evaluated , a outpatient thyroid ultrasound is recommended..5. Small hiatal hernia. CT brain: 1. No acute intracranial abnormality demonstrated.2. Chronic white matter changes are again seen. Carotid U/S 1. Right Internal Carotid Artery: No significant stenosis; minimal atherosclerotic plaque is visualized.2. Left Internal Carotid Artery: No significant stenosis; minimal atherosclerotic plaque is visualized. 3. Antegrade flow in both vertebral arteries. CTA Cartotids (09/03) --> NO acute findings cosyntropin stim test in ICU went from 2 to 15 after acth injection in August. -Pt was readmitted to [place] with another hypotensive event at work...same scenario when she bends over to pick something up. She had hypercapnea and resp. acidosis in ED. given narcan and aroused. Was initially called cva alert. - Blood pressure trending upward - resume lisinopril 20mg BID upon discharge - resume procardia XL 30mg daily upon discharge - upon discharge pt is to continue gabapentin at lower dose of 400mg daily - continue zoloft - morphine ER was decreased to 15mg BID, #30 - [employer] queried and reviewed (pt is listed in [employer] twice under both [facility]ine[facility] & Karen) - I discussed dose decrease with Pain Mgmt, Dr. Bailey. - No further baclofen, amitriptylin, or valium - Pt treated for E.coli UTI during hospitalization. No abx upon discharge. - Hg stable without signs of bleeding PER Dr. Fletcher: reviewed her current home med list with her as discrepancy on many lists I have found. unclear how she is actually taking meds below. I have reviewed her [facility] pharmacy list and discuss: morphine ER 30mg tid, norco 5 tid prn, gabapentin 1200mg in morning and usually 400mg at night prior to work. amitryptiline 25mg bedtime as needed., baclofen 10mg bedtime which is around 8am. , lisinipril 20mg bid, sertraline 100mg bid. procardia 30mg daily Time Spent with Patient Total time spent providing and/or coordinating discharge services: Quality: Stroke Last date observed well: 09/13/18 Last time observed well: 16:30 Quality: VTE Deep Vein Thrombosis/Pulmonary Embolism Present on Admission: No Results Impressions ITS Impressions Head CT 09/14/18 00:00 CONCLUSION: 1. Stable noncontrast head CT. No acute intracranial abnormality is identified. 2. Chronic findings include generalized atrophy and chronic periventricular white matter change. This report was telephoned to Dr. Jimenes on 09/14/2017 at 12:19 AM. Head CTA 09/14/18 00:00 CONCLUSION: Atherosclerotic disease within the distal vertebral arteries bilaterally and within the intracranial aspect of the internal carotid arteries. No large vessel occlusion is present. The above findings were telephoned to Dr. Thomas 09/14/2018 at 12:25 AM. Neck CTA 09/14/18 00:00 CONCLUSION: 1. Atherosclerotic disease within the carotid bulbs bilaterally. However, there is less than 50% stenosis. 2. Severe calcified plaque in the proximal right vertebral artery near its origin. Chest X-Ray 09/14/18 00:01 CONCLUSION: Stable chest x-ray. No acute cardiopulmonary abnormality is identified. Liver Ultrasound 09/16/18 00:00 CONCLUSION: 1. Nonshadowing 6 mm hypoechogenic focus near the neck of the gallbladder could represent polyp versus stone. Common bile duct dimension cannot be reported due to nonvisualization 2. Right pleural effusion. Abdomen X-Ray 09/17/18 00:00 CONCLUSION: Unremarkable bowel gas pattern. Discharge Plan Discharge Disposition Patient Disposition: Discharge Home Discharge Condition Condition: Stable Discharge Details Anticipated Discharge Date: 09/18/18 Discharge Comment: f/u with PCP, Dr. Saúl Li, in 1 week f/u with Pain mgmt, Dr. Bailey, in 2 weeks Physicians Team Primary Care Provider: UNKNOWN, Attending Provider: Sammy Shetty Other Providers: Ari Fletcher Rxs /Orders / Referrals /Forms Prescriptions: New morphine [MS Contin] 15 mg tablet extended release 15 mg PO Q12H Qty: 30 RF: 0 gabapentin [Neurontin] 400 mg Capsule 800 mg PO DAILY 10 Days Qty: 20 RF: 0 Continue lisinopril 20 mg Tablet 20 mg PO BID RF: 0 levothyroxine 100 mcg Tablet 100 mcg PO DAILY RF: 0 levothyroxine 88 mcg Capsule 88 mcg PO DAILY RF: 0 nifedipine [Procardia XL] 30 mg Tablet Extended Release 24hr 30 mg PO DAILY RF: 0 sertraline 100 mg Tablet 100 mg PO BID RF: 0 Discontinued morphine 30 mg Tablet 30 mg PO TID RF: 0 gabapentin 600 mg Tablet 1,200 mg PO DAILY RF: 0 hydrocodone-acetaminophen [Vale] 5-325 mg Tablet 1 tab PO TID PRN (Reason: Pain) RF: 0 gabapentin 400 mg Capsule 400 mg PO HS RF: 0 amitriptyline 25 mg Tablet 25 mg PO HS PRN (Reason: Insomnia) RF: 0 baclofen 10 mg Tablet 10 mg PO HS RF: 0 Referrals: UNKNOWN, [Primary Care Provider] - See Instructions Discharge Interventions Interventions: Discharge Planning - Case Management Last Done: 09/17/18 09:54 Status ED Status: Left Department
== END 2018-09-18 18:05 | disposition home or self-care (01) | DRG 315 ==
LOC: NEPC 23:52 → NEDA 09-14 02:14 → HIMC 09-14 03:45 → HCIS 09-15 10:46
PROVIDERS: ADMIT Internal Medicine Critical Care Medicine; ATTEND Internal Medicine Critical Care Medicine
CPT/HCPCS: 36600; 70450; 70496; 70498; 71010; 71045; 74000; 74018; 76705; 80048; 80053; 80307; 81001; 82550; 82805; 83605; 83735; 84100; 84443; 84484; 85025; 85384; 85610; 85730; 86850; 86900; 86901; 87077; 87086; 87186; 87641; 90761; 90774; 90784; 93005; 94002; 94640; 94656; 94664; 94665; 94770; 96361; 96374; 97162; 97530; 99291; C8952; C9113; J0696; J1644; J2310; J2405; J7030; J7040; P9045; Q9967